=== PATIENT | male | born 1960 | race American Indian/Alaskan Native ===

== ENCOUNTER 2022-05-08 23:04 | Inpatient (IN) | payer SELFPAY ==
[2022-05-08] MEDS ORDERED: SODIUM CHLORIDE 0.9% 1000 ML 1,000 ML IV ONE (23:56)
[2022-05-08] MEDS ORDERED: ONDANSETRON 4 MG/2 ML INJ IV ONE (23:56)
[2022-05-09] LABS: Mean Corpuscular HGB Conc 31 % (32-34); Mean Corpuscular Volume 93 fl (84-94); Platelet Count 351 K/mm3 (140-440); Red Blood Count 4.59 M/mm3 (3.65-5.03); Red Cell Distribution Width 16.1 % (13.2-15.2)
[2022-05-09 00:01] LABS: Hematocrit 42.4 % (35.5-45.6)
[2022-05-09 00:15] LABS: Albumin 4.3 g/dL (3.9-5); Calcium 9.3 mg/dL (8.4-10.2)
[2022-05-09 00:39] LABS: Color,Urine Yellow (Yellow)
[2022-05-09 00:43] LABS: WBC,Urine < 1.0 /HPF (0.0-6.0)
[2022-05-09] MEDS ORDERED: INSULIN REGULAR, HUMAN 100 UNITS/1 ML IV ONE (00:51)
[2022-05-09] MEDS ORDERED: DEXTROSE 50% IN WATER (25GM) 50 ML SYRINGE IV PRN ×2 (00:51→18:56)
[2022-05-09] MEDS ORDERED: SODIUM CHLORIDE 0.9% 1000 ML 1,000 ML IV ONE ×2 (00:59)
[2022-05-09] MEDS ORDERED: CALCIUM GLUCONATE 1,000 MG in SODIUM CHLORIDE 0.9% 100 ML IV ONE (01:00)
[2022-05-09] MEDS ORDERED: D5W/0.45% NACL/KCL 20 MEQ 20 MEQ/1,000 ML BAG IV SCH (01:00)
--- NOTE | 2022-05-09 01:18 | Emergency Department Report ---
ED N/V/D HPI - General Chief complaint: Nausea/Vomiting/Diarrhea Stated complaint: N/V, HYPERGLYCEMIA Time Seen by Provider: 05/08/22 23:53 Source: patient Mode of arrival: Stretcher Limitations: Physical Limitation - History of Present Illness Initial comments: Patient is a 62-year-old male with history of diabetes presenting to ED with complaint of nausea vomiting for the past 3 days. Accu-Chek critical high. - Related Data Allergies Allergy/AdvReac Type Severity Reaction Status Date / Time No Known Allergies Allergy Unverified 05/08/22 23:26 ED Review of Systems ROS: Stated complaint: N/V, HYPERGLYCEMIA Other details as noted in HPI Constitutional: denies: chills, fever Respiratory: denies: cough, shortness of breath, wheezing Cardiovascular: denies: chest pain, palpitations Gastrointestinal: nausea, vomiting. denies: abdominal pain Musculoskeletal: denies: back pain, joint swelling, arthralgia Skin: denies: rash, lesions Neurological: denies: headache, weakness, paresthesias Psychiatric: as per HPI Hematological/Lymphatic: denies: easy bleeding, easy bruising ED Past Medical Hx - Past Medical History Previous Medical History?: Yes Hx Hypertension: Yes Hx CVA: Yes Hx Diabetes: Yes Hx Arthritis: Yes - Surgical History Past Surgical History?: Yes Additional Surgical History: Left BKA - Social History Smoking Status: Never Smoker Substance Use Type: None ED Physical Exam - General Limitations: Physical Limitation General appearance: alert, in no apparent distress - Head Head exam: Present: atraumatic, normocephalic - Respiratory Respiratory exam: Present: normal lung sounds bilaterally. Absent: respiratory distress - Cardiovascular Cardiovascular Exam: Present: normal rhythm, tachycardia, normal heart sounds - GI/Abdominal GI/Abdominal exam: Present: soft. Absent: distended, tenderness - Rectal Rectal exam: Present: deferred - Extremities Exam Extremities exam: Present: other (Left BKA) - Neurological Exam Neurological exam: Present: alert, oriented X3 - Psychiatric Psychiatric exam: Present: normal affect, normal mood - Skin Skin exam: Present: warm, dry, intact, normal color ED Course Vital Signs 05/08/22 05/08/22 05/09/22 23:05 23:50 00:01 Temperature 97.6 F Pulse Rate 110 H 110 H 117 H Respiratory 20 39 H 43 H Rate Blood Pressure 100/56 O2 Sat by Pulse 99 99 Oximetry 05/09/22 05/09/22 05/09/22 00:03 00:15 00:31 Temperature Pulse Rate 116 H 113 H 101 H Respiratory 40 H 37 H 38 H Rate Blood Pressure O2 Sat by Pulse 94 66 L Oximetry 05/09/22 05/09/22 00:45 01:01 Temperature Pulse Rate 80 88 Respiratory 43 H 38 H Rate Blood Pressure O2 Sat by Pulse 95 96 Oximetry ED Medical Decision Making - Lab Data Result diagrams: 05/08/22 23:38 05/09/22 01:12 - Medical Decision Making Lab findings consistent with DKA. Serum potassium 6.9 with peaked T waves noted on EKG. Patient given IV calcium gluconate and started on insulin infusion. Critical Care Time: Yes Critical care time in (mins) excluding proc time.: 50 Critical care attestation.: If time is entered above; I have spent that time in minutes in the direct care of this critically ill patient, excluding procedure time. ED Disposition Clinical Impression: DKA (diabetic ketoacidosis) Disposition: ADMITTED INPATIENT Is pt being admited?: Yes Does the pt Need Aspirin: No Condition: Stable
[2022-05-09] MEDS: INSULIN REGULAR, HUMAN 100 UNITS in SODIUM CHLORIDE 0.9% 99 ML IV SCH ×2 (01:34→16:36)
--- NOTE | 2022-05-09 01:51 | XRay Report ---
CHEST 1 VIEW 05/09/2022 12:42 AM INDICATION / CLINICAL INFORMATION: DKA. COMPARISON: None available. FINDINGS: SUPPORT DEVICES: None. HEART / MEDIASTINUM: No significant abnormality. LUNGS / PLEURA: There are generalized bilateral interstitial opacities without other significant pulm onary abnormalities. No significant pleural effusion. No pneumothorax. ADDITIONAL FINDINGS: No significant additional findings. IMPRESSION: Probable bilateral edema/atelectasis without other acute findings. Signer Name: Isaías Garcia MD Signed: 05/09/2022 1:47 AM Workstation Name: [id number]
[2022-05-09] MEDS ORDERED: CALC GLUCONATE 1GM/NS 100 ML 1 GM/100 ML BAG IV ONE (02:00)
[2022-05-09 02:36] LABS: Calcium 8.9 mg/dL (8.4-10.2)
[2022-05-09 02:42] LABS: ABG Base Excess -22.3 mmol/L (-2.0-3.0); ABG HCO3 4.5 mmol/L (20.0-26.0); ABG Methemoglobin 0.7 % (0.0-1.5); ABG Oxygen Saturation 97.5 % (95.0-99.0); ABG PCO2 13.7 mm Hg; ABG PO2 116.6 mm Hg (80.0-90.0)
[2022-05-09 02:45] LABS: ABG PH 7.138 pH Units (7.350-7.450)
[2022-05-09] MEDS ORDERED: MORPHINE 4 MG/1 ML INJ IV PRN (02:57)
[2022-05-09] MEDS ORDERED: MAGNESIUM HYDROXIDE (MOM) ORAL LIQD UDC PO PRN (02:57)
[2022-05-09] MEDS ORDERED: ACETAMINOPHEN 325 MG TAB PO PRN (02:57)
--- NOTE | 2022-05-09 03:09 | History and Physical Report ---
History of Present Illness Date of examination: 05/09/22 Date of admission: 05/09/2022 Chief complaint: Nausea and vomiting History of present illness: 62-year-old male with known history of diabetes mellitus presenting to the emergency room today complaining of nausea and vomiting with associated abdominal pain which has been ongoing for the past 3 days. He denies any fever or chills, no chest pain or shortness of breath, no headache or dizziness and no diaphoresis. Patient indicates that his machine was reading high on the Accu-Chek machine. Work-up in the emergency room today, lab reveals WBC of 12.4 sodium of 130 potassium of 6.9 CO2 of 6 BUN of 47 creatinine of 1.9 blood glucose 104. Chest x-ray shows probable bilateral edema/atelectasis without other acute findings. Patient is admitted in DKA and started on insulin drip and IV fluid. Past History Past Medical History: arthritis, diabetes, hypertension Past Surgical History: Other (Left BKA) Social history: no significant social history Family history: no significant family history Medications and Allergies Allergies Allergy/AdvReac Type Severity Reaction Status Date / Time No Known Allergies Allergy Unverified 05/08/22 23:26 Active Meds: Active Medications Dextrose (Dextrose 50% In Water (25gm) 50 Ml Syringe) 0 ml IV Q30MIN PRN; Protocol PRN Reason: Hypoglycemia Heparin Sodium (Porcine) (Heparin 5,000 Unit/1 Ml Vial) 5,000 unit SUB-Q Q8HR ELIZA Insulin Human Regular 100 (units/ Sodium Chloride) 100 mls @ 6 mls/hr IV TITR ELIZA; Protocol Last Admin: 05/09/22 01:34 Dose: 6 units/hr, 6 mls/hr Potassium Chloride/Dextrose/Sod Cl (D5w/0.45% Nacl/Kcl 20 Meq) 20 meq in 1,000 mls @ 125 mls/hr IV DIRECT ELIZA Sodium Bicarbonate (Sodium Bicarb 8.4% 50 Meq/50 Ml Syringe) 50 meq IV ONCE ONE Stop: 05/09/22 03:41 Review of Systems Constitutional: no fever, no chills Ears, nose, mouth and throat: no nasal congestion, no sore throat Cardiovascular: no chest pain, no palpitations Respiratory: no cough, no shortness of breath Gastrointestinal: nausea, vomiting, no abdominal pain, no diarrhea Genitourinary Male: no dysuria, no hematuria, no flank pain Musculoskeletal: no neck pain, no low back pain Integumentary: no rash, no pruritis Neurological: no headaches, no confusion Psychiatric: no anxiety, no depression Endocrine: no polyphagia, no polydipsia, no polyuria, no nocturia Exam - Constitutional Vitals: Temp Pulse Resp BP Pulse Ox 97.6 F 88 38 H 100/56 96 05/08/22 23:05 05/09/22 01:01 05/09/22 01:01 05/08/22 23:05 05/09/22 01:01 General appearance: Present: no acute distress, well-nourished - EENT Eyes: Present: PERRL, EOM intact. Absent: scleral icterus ENT: hearing intact, clear oral mucosa, dentition normal - Neck Neck: Present: supple, normal ROM - Respiratory Respiratory effort: normal Respiratory: bilateral: CTA - Cardiovascular Rhythm: regular Heart Sounds: Present: S1 & S2. Absent: gallop, systolic murmur, diastolic murm ur, rub, click - Extremities Extremities: no ischemia, pulses intact, pulses symmetrical, No edema, normal temperature, Full ROM Peripheral Pulses: within normal limits - Abdominal General gastrointestinal: Present: soft, non-tender, non-distended, normal bowel sounds. Absent: mass - Integumentary Integumentary: Present: clear, warm, dry, normal turgor. Absent: rash - Musculoskeletal Musculoskeletal: strength equal bilaterally - Psychiatric Psychiatric: appropriate mood/affect, intact judgment & insight, memory intact, cooperative - Neurologic Neurologic: CNII-XII intact, no focal deficits, moves all extremities Results - Labs CBC & Chem 7: 05/08/22 23:38 05/09/22 04:40 Labs: Abnormal lab results 05/08/22 05/08/22 05/09/22 Range/Units 23:38 23:38 01:12 WBC 12.4 H (4.5-11.0) K/mm3 MCHC 31 L (32-34) % RDW 16.1 H (13.2-15.2) % ABG pH (7.350-7.450) pH Units ABG pO2 (80.0-90.0) mm Hg ABG HCO3 (20.0-26.0) mmol/L ABG Base Excess (-2.0-3.0) mmol/L ABG Hemoglobin (14.0-18.0) gm/dl Sodium 130 L (137-145) mmol/L Potassium 6.9 H* (3.6-5.0) mmol/L Chloride 85.3 L (98-107) mmol/L Carbon Dioxide 6 L* (22-30) mmol/L BUN 47 H (9-20) mg/dL Creatinine 1.9 H (0.8-1.3) mg/dL Glucose 804 H* (75-100) mg/dL Phosphorus 9.60 H (2.5-4.5) mg/dL Magnesium 2.90 H (1.7-2.3) mg/dL Alkaline Phosphatase 142 H (35-129) units/L 05/09/22 05/09/22 Range/Units 01:12 02:20 WBC (4.5-11.0) K/mm3 MCHC (32-34) % RDW (13.2-15.2) % ABG pH 7.138 L* (7.350-7.450) pH Units ABG pO2 116.6 H (80.0-90.0) mm Hg ABG HCO3 4.5 L (20.0-26.0) mmol/L ABG Base Excess -22.3 L (-2.0-3.0) mmol/L ABG Hemoglobin 12.0 L (14.0-18.0) gm/dl Sodium 131 L (137-145) mmol/L Potassium 6.6 H* (3.6-5.0) mmol/L Chloride 88.7 L (98-107) mmol/L Carbon Dioxide 5 L* (22-30) mmol/L BUN 48 H (9-20) mg/dL Creatinine 1.8 H (0.8-1.3) mg/dL Glucose 811 H* (75-100) mg/dL Phosphorus (2.5-4.5) mg/dL Magnesium (1.7-2.3) mg/dL Alkaline Phosphatase (35-129) units/L Assessment and Plan Assessment: 1. DKA 2. Hypertension 3. History of CVA Plan: 1. Patient admitted into the intensive care unit and started on insulin drip and IV fluid 2. We will monitor Accu-Cheks closely. DVT prophylaxis: Subcutaneous heparin CODE STATUS full code
[2022-05-09] MEDS ORDERED: SODIUM BICARB 8.4% 50 MEQ/50 ML SYRINGE IV ONE ×2 (03:40→05:43)
[2022-05-09 04:41] LABS: Basophils % (Manual) 0 % (0.0-1.8); Eosinophils % (Manual) 0 % (0.0-4.3); RBC Morphology Normal; Total Cells Counted 100
[2022-05-09 05:26] LABS: Calcium 8.9 mg/dL (8.4-10.2)
[2022-05-09] MEDS: SODIUM CHLORIDE 0.9% 1000 ML 1,000 ML IV SCH (06:24)
[2022-05-09] MEDS: HEPARIN 5,000 UNIT/1 ML VIAL SUB-Q SCH ×3 (06:24→21:13)
[2022-05-09 07:30] LABS: Calcium 8.7 mg/dL (8.4-10.2)
[2022-05-09] MEDS ORDERED: SODIUM CHLORIDE 0.9% 1000 ML 2,000 ML IV ONE (09:00)
[2022-05-09] MEDS ORDERED: FAMOTIDINE 20 MG/2 ML INJ IV SCH (10:00)
[2022-05-09] MEDS: D5W/0.45% NACL 1,000 ML IV SCH ×2 (11:10→20:00)
--- NOTE | 2022-05-09 11:26 | Consultation ---
History of Present Illness Consult date: 05/09/22 Requesting physician: ALLI BALDERRAMA Reason for consult: other (DKA) History of present illness: PULMONARY/CCM CONSULT NOTE (Full dictation # [id number]) Please see dictated notes for full details Past History Past Medical History: arthritis, diabetes, hypertension Past Surgical History: Other (Left BKA) Social history: no significant social history Family history: no significant family history Medications and Allergies Allergies Allergy/AdvReac Type Severity Reaction Status Date / Time No Known Allergies Allergy Unverified 05/08/22 23:26 Home Medications Medication Instructions Recorded Confirmed Last Taken Type Amlodipine-Benazepril 10-40 mg 10 - 40 mg PO DAILY 05/09/22 05/09/22 05/07/22 History AtorvaSTATin 80 mg PO DAILY 05/09/22 05/09/22 05/07/22 History Gabapentin 100 mg PO DAILY 05/09/22 05/09/22 05/07/22 History HumaLOG 15 mg SQ AC 05/09/22 05/09/22 05/07/22 History Levemir VIAL 22 units SQ HS 05/09/22 05/09/22 05/07/22 History Omeprazole 40 mg PO DAILY 05/09/22 05/09/22 05/08/22 History Active Meds: Active Medications Acetaminophen (Acetaminophen 325 Mg Tab) 650 mg PO Q6H PRN PRN Reason: Pain MILD(1-3)/Fever >100.5/HOLT Dextrose (Dextrose 50% In Water (25gm) 50 Ml Syringe) 0 ml IV Q30MIN PRN; Protocol PRN Reason: Hypoglycemia Famotidine (Famotidine 20 Mg/2 Ml Inj) 20 mg IV QDAY ELIZA Stop: 05/10/22 09:59 Last Admin: 05/09/22 09:04 Dose: 20 mg Famotidine (Famotidine 20 Mg Tab) 20 mg PO QDAY ELIZA Heparin Sodium (Porcine) (Heparin 5,000 Unit/1 Ml Vial) 5,000 unit SUB-Q Q8HR ELIZA Last Admin: 05/09/22 06:24 Dose: 5,000 unit Insulin Human Regular 100 (units/ Sodium Chloride) 100 mls @ 6 mls/hr IV TITR ELIZA; Protocol Last Titration: 05/09/22 11:08 Dose: 5 units/hr, 5 mls/hr Sodium Chloride (Nacl 0.9% 1000 Ml) 1,000 mls @ 150 mls/hr IV DIRECT ELIZA Last Admin: 05/09/22 06:24 Dose: 150 mls/hr Dextrose/Sodium Chloride (D5/0.45ns) 1,000 mls @ 125 mls/hr IV DIRECT [facility] Last Admin: 05/09/22 11:10 Dose: 125 mls/hr Magnesium Hydroxide (Magnesium Hydroxide (Mom) Oral Liqd Udc) 30 ml PO Q4H PRN PRN Reason: Constipation Morphine Sulfate (Morphine 2 Mg/1 Ml Inj) 2 mg IV Q4H PRN PRN Reason: Pain, Moderate (4-6) Ondansetron HCl (Ondansetron 4 Mg/2 Ml Inj) 4 mg IV Q8H PRN PRN Reason: Nausea And Vomiting Sodium Chloride (Sodium Chloride 0.9% 10 Ml Flush Syringe) 10 ml IV BID [facility] Last Admin: 05/09/22 09:04 Dose: 10 ml Sodium Chloride (Sodium Chloride 0.9% 10 Ml Flush Syringe) 10 ml IV PRN PRN PRN Reason: LINE FLUSH Physical Examination Vital signs: Vital Signs Temp Pulse Resp BP Pulse Ox 97.6 F 110 H 20 100/56 99 05/08/22 23:05 05/08/22 23:05 05/08/22 23:05 05/08/22 23:05 05/08/22 23:05 Results - Laboratory Findings CBC and BMP: 05/08/22 23:38 05/09/22 09:27 ABG ABG pH 7.138 pH Units (7.350-7.450) L* 05/09/22 02:20 ABG pCO2 13.7 mm Hg 05/09/22 02:20 ABG pO2 116.6 mm Hg (80.0-90.0) H 05/09/22 02:20 ABG O2 Saturation 97.5 % (95.0-99.0) 05/09/22 02:20 Abnormal lab findings: Abnormal Labs 05/08/22 05/08/22 05/09/22 23:38 23:38 01:12 WBC 12.4 H MCHC 31 L RDW 16.1 H Seg Neuts % (Manual) 86.0 H Lymphocytes % (Manual) 9.0 L Seg Neutrophils # Man 10.7 H Lymphocytes # (Manual) 1.1 L ABG pH ABG pO2 ABG HCO3 ABG Base Excess ABG Hemoglobin Sodium 130 L Potassium 6.9 H* Chloride 85.3 L Carbon Dioxide 6 L* BUN 47 H Creatinine 1.9 H Glucose 804 H* POC Glucose Phosphorus 9.60 H Magnesium 2.90 H Alkaline Phosphatase 142 H 05/09/22 05/09/22 05/09/22 01:12 02:20 04:22 WBC MCHC RDW Seg Neuts % (Manual) Lymphocytes % (Manual) Seg Neutrophils # Man Lymphocytes # (Manual) ABG pH 7.138 L* ABG pO2 116.6 H ABG HCO3 4.5 L ABG Base Excess -22.3 L ABG Hemoglobin 12.0 L Sodium 131 L Potassium 6.6 H* Chloride 88.7 L Carbon Dioxide 5 L* BUN 48 H Creatinine 1.8 H Glucose 811 H* POC Glucose 556 H Phosphorus Magnesium Alkaline Phosphatase 05/09/22 05/09/22 05/09/22 04:40 05:28 06:30 WBC MCHC RDW Seg Neuts % (Manual) Lymphocytes % (Manual) Seg Neutrophils # Man Lymphocytes # (Manual) ABG pH ABG pO2 ABG HCO3 ABG Base Excess ABG Hemoglobin Sodium Potassium 5.8 H Chloride 97.2 L Carbon Dioxide 6 L* BUN 44 H Creatinine 1.8 H Glucose 629 H* POC Glucose 591 H 487 H Phosphorus 8.00 H Magnesium 2.80 H Alkaline Phosphatase 05/09/22 07:00 WBC MCHC RDW Seg Neuts % (Manual) Lymphocytes % (Manual) Seg Neutrophils # Man Lymphocytes # (Manual) ABG pH ABG pO2 ABG HCO3 ABG Base Excess ABG Hemoglobin Sodium Potassium 6.3 H* Chloride Carbon Dioxide 10 L BUN 45 H Creatinine 1.8 H Glucose 534 H* POC Glucose Phosphorus Magnesium Alkaline Phosphatase
[2022-05-09 12:15] LABS: Calcium 8.9 mg/dL (8.4-10.2)
--- NOTE | 2022-05-09 13:29 | Progress Note ---
<PETRA PEREZ - Last Filed: 05/09/22 16:02> Assessment and Plan Assessment and plan: This is a 62-year-old male with known past medical history of HTN, arthritis, and IDDM complicated by diabetic neuropathy s/p LBKA, admitted for DKA Hospital Course to Date: 05/09: Remains in DKA with hyperkalemia and metabolic acidosis this am. Additional IVF administered, continue insulin gtt and IVF resuscitation per DKA protocol. Renal function is unchanged, patient denied any previous renal issues. Probably vasomotor nephropathy secondary to DKA. Serial labs ordered. Continue to monitor BG, anion gap, and electrolytes. Assessment and Plan #Diabetic Ketoacidosis(DKA) #Insulin Dependent Diabetes Mellitus(IDDM) #Anion Gap Metabolic Acidosis - On DKA protocol - BG and anion gap still elevated this am - Additional IVF bolus ordered - Continue insulin gtt and IVF resuscitation per DKA protocol - Hgb A1c pending - Monitor and replace electrolytes as needed - Monitor anion gap, serial Labs ordered #Acute Kidney Injury([facility]) probably Vasomotor Nephropathy #Hyperkalemia #Metabolic Acidosis - secondary to Above - Baseline renal function is unknown, patient reported no prior history of renal disease - Presented with K of 6.9, Scr. 1.9 - Mild improvement in renal function post IVF hydration - Urine lytes pending - Continue insulin gtt and IVF resuscitation per DKA protocol - Serial Labs Q4hrs - Strict intake and output - Avoid nephrotoxic medications; Renally dose medications - Monitor and replace electrolytes as needed #SIRS - With leukocytosis, low grade temp 100.3, and low BP - UA is unremarkable - Chest x-ray shows probable bilateral edema/atelectasis without other acute findings - Patient is stable on RA, SPO2 above 95% - Probably reactive 2/2 DKA - COVID PCR pending - Will get blood cultures for now, check CRP and procal - Hold off on IV Abx for now #Hypertension - BP soft this am, SR on the monitor - Hold antihypertensive therapy today, resume home meds tomorrow - Continue blood pressure monitor per protocol - Maintain SBP less than 160 #Diabetic Neuropathy s/p LBKA - Chronic, continue support measures - Home meds resumed #GI/DVT Prophylaxis - PPI- Pepcid - Heparin SubQ - SCDs to bilateral lower extremities while in bed #Advance Care Planning - Disease education data, care plan, diagnoses, and prognosis were discussed with patient at the bedside. Patient is a FULL code. Patient acknowledged understanding and agreed with current care plan. The high probability of a clinically significant, sudden or life threatening deterioration of the [multiple] system(s) required my full and direct attention, intervention and personal management. The aggregate critical care time was [60] minutes. This time is in addition to time spent performing reported procedures but includes the following: [x] Data Review and interpretation [x] Patient assessment and monitoring of vital signs [x] Documentation [x] Medication orders and management Disposition Plan: ICU Total Time Spent with Patient (Minutes): 60 History Interval history: Patient seen and examined at the bedside. Fully AAO, on RA, denied any pain nor any discomfort at this time. On the DKA protocol, N/V resolved, VSS. SEGUNDO overnight. Hospitalist Physical - Constitutional Vitals: Temp Pulse Resp BP Pulse Ox 98.1 F 92 H 24 86/42 97 05/09/22 08:00 05/09/22 13:00 05/09/22 13:00 05/09/22 13:00 05/09/22 13:00 General appearance: Present: no acute distress, well-nourished, obese - EENT Eyes: Present: PERRL, EOM intact ENT: hearing intact - Neck Neck: Present: normal ROM - Respiratory Respiratory effort: normal Respiratory: bilateral: diminished - Cardiovascular Rhythm: regular Heart Sounds: Present: S1 & S2 - Extremities Extremities: no ischemia, pulses intact, pulses symmetrical, abnormal (Left BKA) Peripheral Pulses: within normal limits - Abdominal General gastrointestinal: soft, non-distended, normal bowel sounds - Integumentary Integumentary: Present: warm, dry - Psychiatric Psychiatric: appropriate mood/affect, cooperative - Neurologic Neurologic: CNII-XII intact, moves all extremities - Allied Health Allied health notes reviewed: nursing Results - Labs CBC & Chem 7: 05/08/22 23:38 05/09/22 14:32 Labs: Laboratory Last Values WBC 12.4 K/mm3 (4.5-11.0) H 05/08/22 23:38 RBC 4.59 M/mm3 (3.65-5.03) 05/08/22 23:38 Hgb 13.0 gm/dl (11.8-15.2) 05/08/22 23:38 Hct 42.4 % (35.5-45.6) 05/08/22 23:38 MCV 93 fl (84-94) 05/08/22 23:38 MCH 28 pg (28-32) 05/08/22 23:38 MCHC 31 % (32-34) L 05/08/22 23:38 RDW 16.1 % (13.2-15.2) H 05/08/22 23:38 Plt Count 351 K/mm3 (140-440) 05/08/22 23:38 Add Manual Diff Complete 05/08/22 23:38 Total Counted 100 05/08/22 23:38 Seg Neutrophils % Patient Accounts Specialist 05/08/22 23:38 Seg Neuts % (Manual) 86.0 % (40.0-70.0) H 05/08/22 23:38 Band Neutrophils % 0 % 05/08/22 23:38 Lymphocytes % (Manual) 9.0 % (13.4-35.0) L 05/08/22 23:38 Reactive Lymphs % (Man) 0 % 05/08/22 23:38 Monocytes % (Manual) 5.0 % (0.0-7.3) 05/08/22 23:38 Eosinophils % (Manual) 0 % (0.0-4.3) 05/08/22 23:38 Basophils % (Manual) 0 % (0.0-1.8) 05/08/22 23:38 Metamyelocytes % 0 % 05/08/22 23:38 Myelocytes % 0 % 05/08/22 23:38 Promyelocytes % 0 % 05/08/22 23:38 Blast Cells % 0 % 05/08/22 23:38 Nucleated RBC % Not Reportable 05/08/22 23:38 Seg Neutrophils # Man 10.7 K/mm3 (1.8-7.7) H 05/08/22 23:38 Band Neutrophils # 0.0 K/mm3 05/08/22 23:38 Lymphocytes # (Manual) 1.1 K/mm3 (1.2-5.4) L 05/08/22 23:38 Abs React Lymphs (Man) 0.0 K/mm3 05/08/22 23:38 Monocytes # (Manual) 0.6 K/mm3 (0.0-0.8) 05/08/22 23:38 Eosinophils # (Manual) 0.0 K/mm3 (0.0-0.4) 05/08/22 23:38 Basophils # (Manual) 0.0 K/mm3 (0.0-0.1) 05/08/22 23:38 Metamyelocytes # 0.0 K/mm3 05/08/22 23:38 Myelocytes # 0.0 K/mm3 05/08/22 23:38 Promyelocytes # 0.0 K/mm3 05/08/22 23:38 Blast Cells # 0.0 K/mm3 05/08/22 23:38 WBC Morphology Not Reportable 05/08/22 23:38 Hypersegmented Neuts Not Reportable 05/08/22 23:38 Hyposegmented Neuts Not Reportable 05/08/22 23:38 Hypogranular Neuts Not Reportable 05/08/22 23:38 Smudge Cells Not Reportable 05/08/22 23:38 Toxic Granulation Not Reportable 05/08/22 23:38 Toxic Vacuolation Not Reportable 05/08/22 23:38 Dohle Bodies Not Reportable 05/08/22 23:38 Pelger-Huet Anomaly Not Reportable 05/08/22 23:38 Buster Rods Not Reportable 05/08/22 23:38 Platelet Estimate Not Reportable 05/08/22 23:38 Clumped Platelets Not Reportable 05/08/22 23:38 Plt Clumps, EDTA Not Reportable 05/08/22 23:38 Large Platelets Not Reportable 05/08/22 23:38 Giant Platelets Not Reportable 05/08/22 23:38 Platelet Satelliting Not Reportable 05/08/22 23:38 Plt Morphology Comment Not Reportable 05/08/22 23:38 RBC Morphology Normal 05/08/22 23:38 Dimorphic RBCs Not Reportable 05/08/22 23:38 Polychromasia Not Reportable 05/08/22 23:38 Hypochromasia Not Reportable 05/08/22 23:38 Poikilocytosis Not Reportable 05/08/22 23:38 Anisocytosis Not Reportable 05/08/22 23:38 Microcytosis Not Reportable 05/08/22 23:38 Macrocytosis Not Reportable 05/08/22 23:38 Spherocytes Not Reportable 05/08/22 23:38 Pappenheimer Bodies Not Reportable 05/08/22 23:38 Sickle Cells Not Reportable 05/08/22 23:38 Target Cells Not Reportable 05/08/22 23:38 Tear Drop Cells Not Reportable 05/08/22 23:38 Ovalocytes Not Reportable 05/08/22 23:38 Helmet Cells Not Reportable 05/08/22 23:38 [place] Bodies Not Reportable 05/08/22 23:38 [place] Rings Not Reportable 05/08/22 23:38 [place] Cells Not Reportable 05/08/22 23:38 Bite Cells Not Reportable 05/08/22 23:38 Crenated Cell Not Reportable 05/08/22 23:38 Elliptocytes Not Reportable 05/08/22 23:38 Acanthocytes (Spur) Not Reportable 05/08/22 23:38 Rouleaux Not Reportable 05/08/22 23:38 Hemoglobin C Crystals Not Reportable 05/08/22 23:38 Schistocytes Not Reportable 05/08/22 23:38 Malaria parasites Not Reportable 05/08/22 23:38 Markus Bodies Not Reportable 05/08/22 23:38 Hem Pathologist Commnt No 05/08/22 23:38 ABG pH 7.138 pH Units (7.350-7.450) L* 05/09/22 02:20 ABG pCO2 13.7 mm Hg 05/09/22 02:20 ABG pO2 116.6 mm Hg (80.0-90.0) H 05/09/22 02:20 ABG HCO3 4.5 mmol/L (20.0-26.0) L 05/09/22 02:20 ABG O2 Saturation 97.5 % (95.0-99.0) 05/09/22 02:20 ABG O2 Content 16.4 (0.0-44) 05/09/22 02:20 ABG Base Excess -22.3 mmol/L (-2.0-3.0) L 05/09/22 02:20 ABG Hemoglobin 12.0 gm/dl (14.0-18.0) L 05/09/22 02:20 ABG Carboxyhemoglobin 1.2 % (0.0-5.0) 05/09/22 02:20 ABG Methemoglobin 0.7 % (0.0-1.5) 05/09/22 02:20 Oxyhemoglobin 95.6 % (95.0-99.0) 05/09/22 02:20 FiO2 21 % 05/09/22 02:20 Sodium 143 mmol/L (137-145) 05/09/22 09:27 Potassium 5.2 mmol/L (3.6-5.0) H 05/09/22 09:27 Chloride 104.3 mmol/L (98-107) 05/09/22 09:27 Carbon Dioxide 14 mmol/L (22-30) L 05/09/22 09:27 Anion Gap 30 mmol/L 05/09/22 09:27 BUN 41 mg/dL (9-20) H 05/09/22 09:27 Creatinine 1.8 mg/dL (0.8-1.3) H 05/09/22 09:27 Estimated GFR 46 ml/min 05/09/22 09:27 BUN/Creatinine Ratio 23 % 05/09/22 09:27 Glucose 344 mg/dL (75-100) H 05/09/22 09:27 POC Glucose 487 mg/dL (70-105) H 05/09/22 06:30 Ketones Quantitative Small (Negative) 05/08/22 00:02 Calcium 8.9 mg/dL (8.4-10.2) 05/09/22 09:27 Phosphorus 2.80 mg/dL (2.5-4.5) D 05/09/22 09:27 Magnesium 2.60 mg/dL (1.7-2.3) H 05/09/22 09:27 Total Bilirubin 0.40 mg/dL (0.1-1.2) 05/08/22 23:38 AST 25 units/L (5-40) 05/08/22 23:38 ALT 12 units/L (7-56) 05/08/22 23:38 Alkaline Phosphatase 142 units/L (35-129) H 05/08/22 23:38 Total Protein 8.0 g/dL (6.3-8.2) 05/08/22 23:38 Albumin 4.3 g/dL (3.9-5) 05/08/22 23:38 Albumin/Globulin Ratio 1.2 % 05/08/22 23:38 Urine Color Yellow (Yellow) 05/09/22 00:12 Urine Turbidity Clear (Clear) 05/09/22 00:12 Specific [place] (Man) 1.020 (1.003-1.030) 05/09/22 00:12 Ur Protein (Man) 3+ mg/dL (Negative) 05/09/22 00:12 Ur Ketones (Man) 3+ (Negative) 05/09/22 00:12 Ur Nitrite (Man) Negative (Negative) 05/09/22 00:12 Leukocyte Esterase (Man) Negative (Negative) 05/09/22 00:12 Urine WBC (Auto) < 1.0 /HPF (0.0-6.0) 05/09/22 00:12 Urine RBC (Auto) 1.0 /HPF (0.0-6.0) 05/09/22 00:12 U Epithel Cells (Auto) < 1.0 /HPF (0-13.0) 05/09/22 00:12 Urine RBC (Manual) Negative (Negative) 05/09/22 00:12 Meek/IV: Voiding Method Urinal Active Medications - Current Medications Current Medications: Generic Name Dose Route Start Last Admin Trade Name Freq PRN Reason Stop Dose Admin Acetaminophen 650 mg 05/09/22 02:57 Acetaminophen 325 Mg Tab PO Q6H PRN Pain MILD(1-3)/Fever >100.5/HOLT Dextrose 0 ml 05/09/22 00:51 Dextrose 50% In Water (25gm) 50 Ml Syringe IV Q30MIN PRN Hypoglycemia Protocol Famotidine 20 mg 05/09/22 10:00 05/09/22 09:04 Famotidine 20 Mg/2 Ml Inj IV 05/10/22 09:59 20 mg QDAY ELIZA Administration Famotidine 20 mg 05/10/22 10:00 Famotidine 20 Mg Tab PO QDAY ELIZA Heparin Sodium (Porcine) 5,000 unit 05/09/22 06:00 05/09/22 06:24 Heparin 5,000 Unit/1 Ml Vial SUB-Q 5,000 unit Q8HR ELIZA Administration Insulin Human Regular 100 100 mls @ 6 mls/hr 05/09/22 01:00 05/09/22 12:20 units/ Sodium Chloride IV 3 units/hr TITR ELIZA 3 mls/hr Titration Protocol 6 UNITS/HR Sodium Chloride 1,000 mls @ 150 mls/hr 05/09/22 03:00 05/09/22 06:24 Nacl 0.9% 1000 Ml IV 150 mls/hr DIRECT ELIZA Administration Dextrose/Sodium Chloride 1,000 mls @ 125 mls/hr 05/09/22 09:00 05/09/22 11:10 D5/0.45ns IV 125 mls/hr DIRECT ELIZA Administration Lactated Ringer's 1,000 mls @ 999 mls/hr 05/09/22 13:25 Lactated Ringers IV 05/09/22 14:25 BOLUS ONE Magnesium Hydroxide 30 ml 05/09/22 02:57 Magnesium Hydroxide (Mom) Oral Liqd Udc PO Q4H PRN Constipation Morphine Sulfate 2 mg 05/09/22 02:57 Morphine 2 Mg/1 Ml Inj IV Q4H PRN Pain, Moderate (4-6) Ondansetron HCl 4 mg 05/09/22 02:57 Ondansetron 4 Mg/2 Ml Inj IV Q8H PRN Nausea And Vomiting Sodium Chloride 10 ml 05/09/22 10:00 05/09/22 09:04 Sodium Chloride 0.9% 10 Ml Flush Syringe IV 10 ml BID ELIZA Administration Sodium Chloride 10 ml 05/09/22 02:57 Sodium Chloride 0.9% 10 Ml Flush Syringe IV PRN PRN LINE FLUSH Nutrition/Malnutrition Assess - Dietary Evaluation Nutrition/Malnutrition Findings: Nutrition Notes Start: 05/09/22 08:2 9 Freq: Status: Active Protocol: Document 05/09/22 08:29 CHANI (Rec: 05/09/22 08:45 CHANI [id number]) Nutrition Notes Need for Assessment generated from: MD Order,Education Initial or Follow up Brief Note Current Diagnosis Acute Kidney Injury,Diabetes, Stroke Other Pertinent Diagnosis Hyperglycemia, DKA, Hyperkalemia. Current Diet NPO (since 05/09 03:01). 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 Pt currently on NPO. Pt is on Room Air, O2 saturation @ 100%, according to Physical Assessment History notes. Pt has missing teeth, according to Physical Assessment History notes. Pt presents L-BKA, according to Physical Assessment History notes. Pt complains of N/V/Abdominal Pain, according to History & Physical notes. Pt still in critical condition , not a candidate for Nutrition Education at the time, will assess feasibility on F/U. Percent of energy/protein needs met: Pt currently on NPO. Nutrition Intervention Follow-Up By: 05/11/22 Additional Comments Nutrition education will be provided at F/U, if feasible. When pertinent, start monitoring food tolerance, %PO intake of meals, and BM. <ROSA KOHLER - Last Filed: 05/10/22 07:38> Assessment and Plan Assessment and plan: I saw and evaluated the patient. I agree with the findings and the plan of care as documented in the Nurse Practitioner's~note, with the following corrections and additions. Hospitalist Physical - Constitutional Vitals: Temp Pulse Resp BP Pulse Ox 98.9 F 95 H 23 110/54 99 05/10/22 07:16 05/10/22 06:00 05/10/22 06:00 05/10/22 06:00 05/10/22 06:00 Results - Labs CBC & Chem 7: 05/10/22 05:07 05/10/22 05:07 Labs: Laboratory Last Values WBC 16.0 K/mm3 (4.5-11.0) H 05/10/22 05:07 RBC 4.34 M/mm3 (3.65-5.03) 05/10/22 05:07 Hgb 12.2 gm/dl (11.8-15.2) 05/10/22 05:07 Hct 36.6 % (35.5-45.6) 05/10/22 05:07 MCV 84 fl (84-94) 05/10/22 05:07 MCH 28 pg (28-32) 05/10/22 05:07 MCHC 33 % (32-34) 05/10/22 05:07 RDW 15.2 % (13.2-15.2) 05/10/22 05:07 Plt Count 291 K/mm3 (140-440) 05/10/22 05:07 Add Manual Diff Complete 05/08/22 23:38 Total Counted 100 05/08/22 23:38 Seg Neutrophils % Patient Accounts Specialist 05/08/22 23:38 Seg Neuts % (Manual) 86.0 % (40.0-70.0) H 05/08/22 23:38 Band Neutrophils % 0 % 05/08/22 23:38 Lymphocytes % (Manual) 9.0 % (13.4-35.0) L 05/08/22 23:38 Reactive Lymphs % (Man) 0 % 05/08/22 23:38 Monocytes % (Manual) 5.0 % (0.0-7.3) 05/08/22 23:38 Eosinophils % (Manual) 0 % (0.0-4.3) 05/08/22 23:38 Basophils % (Manual) 0 % (0.0-1.8) 05/08/22 23:38 Metamyelocytes % 0 % 05/08/22 23:38 Myelocytes % 0 % 05/08/22 23:38 Promyelocytes % 0 % 05/08/22 23:38 Blast Cells % 0 % 05/08/22 23:38 Nucleated RBC % Not Reportable 05/08/22 23:38 Seg Neutrophils # Man 10.7 K/mm3 (1.8-7.7) H 05/08/22 23:38 Band Neutrophils # 0.0 K/mm3 05/08/22 23:38 Lymphocytes # (Manual) 1.1 K/mm3 (1.2-5.4) L 05/08/22 23:38 Abs React Lymphs (Man) 0.0 K/mm3 05/08/22 23:38 Monocytes # (Manual) 0.6 K/mm3 (0.0-0.8) 05/08/22 23:38 Eosinophils # (Manual) 0.0 K/mm3 (0.0-0.4) 05/08/22 23:38 Basophils # (Manual) 0.0 K/mm3 (0.0-0.1) 05/08/22 23:38 Metamyelocytes # 0.0 K/mm3 05/08/22 23:38 Myelocytes # 0.0 K/mm3 05/08/22 23:38 Promyelocytes # 0.0 K/mm3 05/08/22 23:38 Blast Cells # 0.0 K/mm3 05/08/22 23:38 WBC Morphology Not Reportable 05/08/22 23:38 Hypersegmented Neuts Not Reportable 05/08/22 23:38 Hyposegmented Neuts Not Reportable 05/08/22 23:38 Hypogranular Neuts Not Reportable 05/08/22 23:38 Smudge Cells Not Reportable 05/08/22 23:38 Toxic Granulation Not Reportable 05/08/22 23:38 Toxic Vacuolation Not Reportable 05/08/22 23:38 Dohle Bodies Not Reportable 05/08/22 23:38 Pelger-Huet Anomaly Not Reportable 05/08/22 23:38 Buster Rods Not Reportable 05/08/22 23:38 Platelet Estimate Not Reportable 05/08/22 23:38 Clumped Platelets Not Reportable 05/08/22 23:38 Plt Clumps, EDTA Not Reportable 05/08/22 23:38 Large Platelets Not Reportable 05/08/22 23:38 Giant Platelets Not Reportable 05/08/22 23:38 Platelet Satelliting Not Reportable 05/08/22 23:38 Plt Morphology Comment Not Reportable 05/08/22 23:38 RBC Morphology Normal 05/08/22 23:38 Dimorphic RBCs Not Reportable 05/08/22 23:38 Polychromasia Not Reportable 05/08/22 23:38 Hypochromasia Not Reportable 05/08/22 23:38 Poikilocytosis Not Reportable 05/08/22 23:38 Anisocytosis Not Reportable 05/08/22 23:38 Microcytosis Not Reportable 05/08/22 23:38 Macrocytosis Not Reportable 05/08/22 23:38 Spherocytes Not Reportable 05/08/22 23:38 Pappenheimer Bodies Not Reportable 05/08/22 23:38 Sickle Cells Not Reportable 05/08/22 23:38 Target Cells Not Reportable 05/08/22 23:38 Tear Drop Cells Not Reportable 05/08/22 23:38 Ovalocytes Not Reportable 05/08/22 23:38 Helmet Cells Not Reportable 05/08/22 23:38 [place] Bodies Not Reportable 05/08/22 23:38 [place] Rings Not Reportable 05/08/22 23:38 [place] Cells Not Reportable 05/08/22 23:38 Bite Cells Not Reportable 05/08/22 23:38 Crenated Cell Not Reportable 05/08/22 23:38 Elliptocytes Not Reportable 05/08/22 23:38 Acanthocytes (Spur) Not Reportable 05/08/22 23:38 Rouleaux Not Reportable 05/08/22 23:38 Hemoglobin C Crystals Not Reportable 05/08/22 23:38 Schistocytes Not Reportable 05/08/22 23:38 Malaria parasites Not Reportable 05/08/22 23:38 Markus Bodies Not Reportable 05/08/22 23:38 Hem Pathologist Commnt No 05/08/22 23:38 ABG pH 7.138 pH Units (7.350-7.450) L* 05/09/22 02:20 ABG pCO2 13.7 mm Hg 05/09/22 02:20 ABG pO2 116.6 mm Hg (80.0-90.0) H 05/09/22 02:20 ABG HCO3 4.5 mmol/L (20.0-26.0) L 05/09/22 02:20 ABG O2 Saturation 97.5 % (95.0-99.0) 05/09/22 02:20 ABG O2 Content 16.4 (0.0-44) 05/09/22 02:20 ABG Base Excess -22.3 mmol/L (-2.0-3.0) L 05/09/22 02:20 ABG Hemoglobin 12.0 gm/dl (14.0-18.0) L 05/09/22 02:20 ABG Carboxyhemoglobin 1.2 % (0.0-5.0) 05/09/22 02:20 ABG Methemoglobin 0.7 % (0.0-1.5) 05/09/22 02:20 Oxyhemoglobin 95.6 % (95.0-99.0) 05/09/22 02:20 FiO2 21 % 05/09/22 02:20 Sodium 140 mmol/L (137-145) 05/10/22 05:07 Potassium 4.4 mmol/L (3.6-5.0) 05/10/22 05:07 Chloride 107.5 mmol/L (98-107) H 05/10/22 05:07 Carbon Dioxide 17 mmol/L (22-30) L 05/10/22 05:07 Anion Gap 20 mmol/L 05/10/22 05:07 BUN 25 mg/dL (9-20) H 05/10/22 05:07 Creatinine 1.2 mg/dL (0.8-1.3) 05/10/22 05:07 Estimated GFR > 60 ml/min 05/10/22 05:07 BUN/Creatinine Ratio 21 % 05/10/22 05:07 Glucose 145 mg/dL (75-100) H 05/10/22 05:07 POC Glucose 145 mg/dL (70-105) H 05/10/22 01:53 Ketones Quantitative Small (Negative) 05/08/22 00:02 Lactic Acid 2.00 mmol/L (0.7-2.0) 05/09/22 17:32 Calcium 8.4 mg/dL (8.4-10.2) 05/10/22 05:07 Phosphorus 2.20 mg/dL (2.5-4.5) L 05/10/22 05:07 Magnesium 2.30 mg/dL (1.7-2.3) 05/10/22 05:07 Total Bilirubin 0.50 mg/dL (0.1-1.2) 05/10/22 05:07 AST 141 units/L (5-40) H 05/10/22 05:07 ALT 28 units/L (7-56) 05/10/22 05:07 Alkaline Phosphatase 114 units/L (35-129) 05/10/22 05:07 C-Reactive Protein 1.60 mg/dL (0.00-1.30) H 05/09/22 17:32 Total Protein 6.5 g/dL (6.3-8.2) 05/10/22 05:07 Albumin 3.6 g/dL (3.9-5) L 05/10/22 05:07 Albumin/Globulin Ratio 1.2 % 05/10/22 05:07 TSH 0.862 mlU/mL (0.270-4.200) 05/10/22 05:07 Urine Color Yellow (Yellow) 05/09/22 00:12 Urine Turbidity Clear (Clear) 05/09/22 00:12 Specific [place] (Man) 1.020 (1.003-1.030) 05/09/22 00:12 Ur Protein (Man) 3+ mg/dL (Negative) 05/09/22 00:12 Ur Ketones (Man) 3+ (Negative) 05/09/22 00:12 Ur Nitrite (Man) Negative (Negative) 05/09/22 00:12 Leukocyte Esterase (Man) Negative (Negative) 05/09/22 00:12 Urine WBC (Auto) < 1.0 /HPF (0.0-6.0) 05/09/22 00:12 Urine RBC (Auto) 1.0 /HPF (0.0-6.0) 05/09/22 00:12 U Epithel Cells (Auto) < 1.0 /HPF (0-13.0) 05/09/22 00:12 Urine RBC (Manual) Negative (Negative) 05/09/22 00:12 Urine Creatinine 198.4 mg/dL (0.1-20.0) H 05/09/22 18:50 Urine Sodium 24 mmol/L 05/09/22 18:50 Urine Total Protein 100 mg/dL (5-11.8) H 05/09/22 18:50 Microbiology: Microbiology 05/09/22 16:00 Peripheral/Venous Blood Culture - Preliminary Culture in Progress 05/09/22 16:00 Peripheral/Venous Blood Culture - Preliminary Culture in Progress Meek/IV: Voiding Method Indwelling Catheter Active Medications - Current Medications Current Medications: Generic Name Dose Route Start Last Admin Trade Name Freq PRN Reason Stop Dose Admin Acetaminophen 650 mg 05/09/22 02:57 Acetaminophen 325 Mg Tab PO Q6H PRN Pain MILD(1-3)/Fever >100.5/HOLT Atorvastatin Calcium 80 mg 05/09/22 22:00 05/09/22 21:14 Atorvastatin 40 Mg Tab PO 80 mg QHS ELIZA Administration Dextrose 0 ml 05/09/22 00:51 Dextrose 50% In Water (25gm) 50 Ml Syringe IV Q30MIN PRN Hypoglycemia Protocol Dextrose 50 ml 05/09/22 18:56 Dextrose 50% In Water (25gm) 50 Ml Syringe IV Q30MIN PRN Hypoglycemia Protocol Famotidine 20 mg 05/09/22 10:00 05/09/22 09:04 Famotidine 20 Mg/2 Ml Inj IV 05/10/22 09:59 20 mg QDAY ELIZA Administration Famotidine 20 mg 05/10/22 10:00 Famotidine 20 Mg Tab PO QDAY ELIZA Gabapentin 100 mg 05/10/22 10:00 Gabapentin 100 Mg Cap PO DAILY ELIZA Heparin Sodium (Porcine) 5,000 unit 05/09/22 06:00 05/10/22 06:24 Heparin 5,000 Unit/1 Ml Vial SUB-Q 5,000 unit Q8HR ELIZA Administration Sodium Chloride 1,000 mls @ 150 mls/hr 05/09/22 03:00 05/09/22 06:24 Nacl 0.9% 1000 Ml IV 150 mls/hr DIRECT ELIZA Administration Azithromycin 500 mg in 250 mls @ 250 mls/hr 05/09/22 17:00 05/09/22 16:58 Zithromax/Ns IV 250 mls/hr Q24H ELIZA Administration Ceftriaxone Sodium 2 gm in 100 mls @ 200 mls/hr 05/09/22 17:00 05/10/22 05:23 Rocephin/Ns 2 Gm/100 Ml IV 200 mls/hr Q12H [facility] Administration Protocol Insulin Glargine 15 units 05/09/22 20:00 05/09/22 21:14 Insulin Glargine 100 Units/Ml SUB-Q Not Given QHS [facility] Insulin Human Lispro 0 unit 05/09/22 22:00 05/10/22 06:24 Insulin Lispro 100 Unit/Ml SUB-Q Not Given Q4HR [facility] Protocol Magnesium Hydroxide 30 ml 05/09/22 02:57 Magnesium Hydroxide (Mom) Oral Liqd Udc PO Q4H PRN Constipation Morphine Sulfate 2 mg 05/09/22 02:57 05/09/22 22:58 Morphine 2 Mg/1 Ml Inj IV 2 mg Q4H PRN Administration Pain, Moderate (4-6) Ondansetron HCl 4 mg 05/09/22 02:57 05/09/22 22:58 Ondansetron 4 Mg/2 Ml Inj IV 4 mg Q8H PRN Administration Nausea And Vomiting Sodium Chloride 10 ml 05/09/22 10:00 05/09/22 21:14 Sodium Chloride 0.9% 10 Ml Flush Syringe IV 10 ml BID ELIZA Administration Sodium Chloride 10 ml 05/09/22 02:57 Sodium Chloride 0.9% 10 Ml Flush Syringe IV PRN PRN LINE FLUSH Nutrition/Malnutrition Assess - Dietary Evaluation Nutrition/Malnutrition Findings: Nutrition Notes Start: 05/09/22 0 8:29 Freq: Status: Active Protocol: Document 05/09/22 08:29 CHANI (Rec: 05/09/22 08:45 CHANI [email or web address]) Nutrition Notes Need for Assessment generated from: MD Order,Education Initial or Follow up Brief Note Current Diagnosis Acute Kidney Injury,Diabetes, Stroke Other Pertinent Diagnosis Hyperglycemia, DKA, Hyperkalemia. Current Diet NPO (since 05/09 03:01). 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 Pt currently on NPO. Pt is on Room Air, O2 saturation @ 100%, according to Physical Assessment History notes. Pt has missing teeth, according to Physical Assessment History notes. Pt presents L-BKA, according to Physical Assessment History notes. Pt complains of N/V/Abdominal Pain, according to History & Physical notes. Pt still in critical condition , not a candidate for Nutrition Education at the time, will assess feasibility on F/U. Percent of energy/protein needs met: Pt currently on NPO. Nutrition Intervention Follow-Up By: 05/11/22 Additional Comments Nutrition education will be provided at F/U, if feasible. When pertinent, start monitoring food tolerance, %PO intake of meals, and BM.
[2022-05-09] MEDS ORDERED: LACTATED RINGERS 1,000 ML IV ONE ×2 (14:20→15:00)
[2022-05-09 15:10] LABS: Calcium 8.1 mg/dL (8.4-10.2)
[2022-05-09] MEDS: cefTRIAXone/NS 2 GM/100 ML 2 GM/100 ML BAG IV SCH (16:58)
[2022-05-09] MEDS: AZITHROMYCIN/NS 500 MG/250 ML 500 MG/250 ML BAG IV SCH (16:58)
[2022-05-09 18:30] LABS: BUN/Creatinine Ratio 26; Blood Urea Nitrogen 36 mg/dL (9-20); Hemolysis Index 6
[2022-05-09 20:02] LABS: Creatinine,Urine 198.4 mg/dL (0.1-20.0)
[2022-05-09] MEDS: INSULIN GLARGINE 100 UNITS/ML SUB-Q SCH ×2 (20:31→21:14)
[2022-05-09] MEDS: INSULIN LISPRO 100 UNIT/ML SUB-Q SCH (21:58)
[2022-05-09] MEDS ORDERED: INSULIN LISPRO 100 UNIT/ML SUB-Q SCH (22:00)
[2022-05-09] MEDS ORDERED: NON-FORMULARY EACH (Atorvastatin Tablet) PO SCH (22:00)
--- NOTE | 2022-05-09 22:24 | Consultation ---
DATE OF CONSULTATION: 05/09/2022 PULMONARY AND CRITICAL CARE CONSULT NOTE CONSULTING PHYSICIAN: Dr. Livan Trejo. REASON FOR CONSULTATION: Diabetic ketoacidosis. CHIEF COMPLAINT AND HISTORY OF PRESENT ILLNESS: The patient is a now 62-year-old male with a past medical history of diabetes, who presented to the Emergency Room yesterday complaining of nausea and vomiting and abdominal pain have been going on for about 3 days. He denied fevers or chills. He denied any new wounds or sores on his body. He denied any chest pain, shortness of breath. He denied palpitations. He stated that he was taking his medications at home, but his Accu-Chek readings had been high. In the Emergency Room, he had a white cell count. He was found to be in diabetic ketoacidosis with hyperkalemia. Serum potassium of 6.9 and a serum bicarbonate of 6.0. Chest x-ray also revealed pulmonary infiltrates. ICU admission was requested and offered. When I stopped by to see him, he was resting in bed. He was feeling a whole lot better. He has remained on the IV insulin drip at 3 units per hour. This really is as much of the history of presentation as I have. He denies tobacco use right now. PAST MEDICAL HISTORY: Diabetes, hypertension, arthritis. PAST SURGICAL HISTORY: He has had a left [id number]-[id number] amputation 2 years ago. MEDICATIONS: He was on at the time I stopped by to see him, according to the medication physician record included the following: Tylenol 650 mg p.o. q.6 hours p.r.n. mild pain or fevers, D5 half NS at 125 mL per hour, Pepcid 20 mg p.o. daily, heparin 5000 units subcutaneous q.8 hours, insulin drip was going at 3 units per hour, morphine sulfate 2 mg IV q. 4 hours p.r.n. moderate pain and Zofran 4 mg IV q.8 hours p.r.n. nausea and vomiting. ALLERGIES: No known drug allergies. DIET: Well built gentleman. Denies acute weight loss or gain in the preceding few weeks to months. FAMILY AND SOCIAL HISTORY: Lives in the community. Denies alcohol, tobacco or illicit drug use or abuse. FAMILY HISTORY: Otherwise, noncontributory. REVIEW OF SYSTEMS: No loss of consciousness. No new onset seizures. No new onset focal weakness. Denies gross hematochezia or melena. Denies gross hematuria or dysuria. No hematemesis, no hemoptysis, no palpitations. Complete 13-system review of system was obtained. Pertinent positives and/or negatives as in body of history above, otherwise they are noncontributory. PHYSICAL EXAMINATION: VITAL SIGNS: On presentation in the Emergency Room, he was afebrile, temperature 97.6, pulse 110, respiratory rate of 20, blood pressure 100/56, O2 sats were 99% on room air. GENERAL: He is thin, elderly male. Normocephalic, atraumatic. Resting in bed with normal respiratory effort at rest. HEAD, EYES, EARS, NOSE AND THROAT: Anicteric. No conjunctival erythema. Oropharynx was moist. NECK: No gross jugular venous distention or thyromegaly. Grossly, there were no palpable lymph nodes in the supraclavicular or submandibular lymph node chains. LUNGS: Auscultation of both lung alvarez are unremarkable. Lungs were clear bilaterally with good bilateral air movement. HEART: Sounds 1 and 2 are heard at the time of my evaluation, regular rate and rhythm without overt rubs or murmurs. ABDOMEN: Soft, full, bowel sounds are positive, nontender, no palpable hepatosplenomegaly. EXTREMITIES: Without overt digital clubbing or cyanosis, no pedal edema. He has a left [id number] amputation. Pedal pulses 2+ on the right. NEUROLOGIC: Pupils are equal, round, about 4 mm, reactive to light. Extraocular muscle movements were intact. He moves all 4 extremities spontaneously. PSYCHIATRIC: His mood was normal. Affect was appropriate. He had intact judgment and insight. SKIN: Normal turgor in the areas I examined without overt cellulitis or rash. Please see the wound care nurses' notes for full description of his skin. LABORATORY DATA: From my review as follows: Admission white cell count 12,400, hemoglobin 13.0, hematocrit 42.4, platelet count 351. No band forms on the manual differential. Venous blood gas showed a pH of 7.14, pCO2 of 14, pO2 of 117 on room air. Serum sodium was 130, potassium 6.9, chloride 85, bicarbonate 6, BUN 47, creatinine 1.9, glucose was 804. Liver function test, essentially within normal limits. Urinalysis was unremarkable. No microbiology studies. A chest x-ray was done, it showed a globular heart with cardiomegaly, some hilar congestion. The film was rotated to the right. No gross pneumothorax, no pleural effusions, no gross bony fractures. ASSESSMENT: 1. Diabetic ketoacidosis. 2. Hyperkalemia. 3. History of hypertension. 4. History of cerebrovascular accident. PLAN: We will continue with the DKA protocol and hopefully we can soon be able to transfer him off IV insulin therapy. Electrolytes have been followed and corrected as necessary. Volume resuscitation is ongoing per protocol. Continued tobacco abstinence, has been counseled. He is appropriately on GI prophylaxis as well as DVT prophylaxis. Flu and pneumonia vaccination will be addressed per protocol. Thank you very much for the consult. We will follow along and make further recommendations as picture progresses/becomes clearer. TID: [id number] RECEIPT: [id number] ARIS/JOANNA
[2022-05-09] MEDS: ONDANSETRON 4 MG/2 ML INJ IV PRN (22:58)
[2022-05-09] MEDS: MORPHINE 2 MG/1 ML INJ IV PRN (22:58)
[2022-05-10 05:20] LABS: Hematocrit 36.6 % (35.5-45.6); Hemoglobin 12.2 gm/dl (11.8-15.2); Mean Corpuscular HGB Conc 33 % (32-34); Mean Corpuscular Volume 84 fl (84-94); Platelet Count 291 K/mm3 (140-440); Red Blood Count 4.34 M/mm3 (3.65-5.03); Red Cell Distribution Width 15.2 % (13.2-15.2)
[2022-05-10] MEDS: cefTRIAXone/NS 2 GM/100 ML 2 GM/100 ML BAG IV SCH (05:23)
[2022-05-10 05:48] LABS: Alanine Aminotransferase 28 units/L (7-56); Albumin 3.6 g/dL (3.9-5); BUN/Creatinine Ratio 21; Blood Urea Nitrogen 25 mg/dL (9-20); Calcium 8.4 mg/dL (8.4-10.2); Hemolysis Index 6
[2022-05-10] MEDS: HEPARIN 5,000 UNIT/1 ML VIAL SUB-Q SCH ×3 (06:24→22:30)
[2022-05-10] MEDS: INSULIN LISPRO 100 UNIT/ML SUB-Q SCH ×4 (06:24→23:46)
[2022-05-10] MEDS: ONDANSETRON 4 MG/2 ML INJ IV PRN ×2 (09:02→18:37)
[2022-05-10] MEDS: FAMOTIDINE 20 MG TAB PO SCH (09:02)
[2022-05-10] MEDS: GABAPENTIN 100 MG CAP PO SCH (09:02)
[2022-05-10] MEDS: TAMSULOSIN 0.4 MG CAP PO SCH (09:04)
[2022-05-10] MEDS ORDERED: NON-FORMULARY EACH (Gabapentin Capsule) PO SCH (10:00)
--- NOTE | 2022-05-10 10:34 | Progress Note ---
<PETRA PEREZ - Last Filed: 05/10/22 19:00> Assessment and Plan Assessment and plan: This is a 62-year-old male with known past medical history of HTN, arthritis, and IDDM complicated by diabetic neuropathy s/p LBKA, admitted for DKA Hospital Course to Date: 05/09: Remains in DKA with hyperkalemia and metabolic acidosis this am. Additional IVF administered, continue insulin gtt and IVF resuscitation per DKA protocol. Renal function is unchanged, patient denied any previous renal issues. Probably vasomotor nephropathy secondary to DKA. Serial labs ordered. Continue to monitor BG, anion gap, and electrolytes. 05/10: Transitioned to subQ insulin overnight. Still c/o abdominal cramping with nausea but no vomiting. Abdominal distention also noted- KUB imaging reviewed, suggesting constipation. Patient reported he has not had a BM in probably over a week. BR added. Patient is afebrile this am with worsen leukocytosis, VSS. COVID PCR is negative, CRP, and TSH noted. Procal still pending, continue current empiric IV abx for now. Germain catheter was also inserted overnight due to urinary retention, renal function in normal range this am. Flomax added, D/C germain per protocol in the am. PT/OT consulted for discharge plan. Patient is stable for transfer to the floor. Assessment and Plan #Diabetic Ketoacidosis(DKA) #Insulin Dependent Diabetes Mellitus(IDDM) #Anion Gap Metabolic Acidosis - On DKA protocol - BG and anion gap still elevated this am - Additional IVF bolus ordered - Continue insulin gtt and IVF resuscitation per DKA protocol - Hgb A1c pending - Monitor and replace electrolytes as needed - Monitor anion gap, serial Labs ordered #Acute Kidney Injury([place]) probably Vasomotor Nephropathy #Urinary Retention #Hyperkalemia-resolved #Metabolic Acidosis-resolved - secondary to Above - Baseline renal function is unknown, patient reported no prior history of renal disease - Presented with K of 6.9, Scr. 1.9. FeNa suggested Prerenal - s/p DKA protocol - Renal function normalized this am - Urinary retention overnight, germain inserted - Flomax added, D/C germain per protocol in the am - Strict intake and output - Avoid nephrotoxic medications; Renally dose medications - Monitor and replace electrolytes as needed #SIRS #Leukocytosis #Bilateral Lungs infiltrate - With leukocytosis, low grade temp 100.3, with low BP - UA is unremarkable - Chest x-ray shows probable bilateral edema/atelectasis without other acute findings - COVID PCR negative - Patient is stable on RA, SPO2 above 95% - COVID PCR negative - Empiric IV Abx initiated for possible CAP - Procal pending - F/U on cultures - Daily CBC monitor #Hypertension - BP soft this am, SR on the monitor - Hold antihypertensive therapy today, resume home meds tomorrow - Continue blood pressure monitor per protocol - Maintain SBP less than 160 #Diabetic Neuropathy s/p LBKA - Chronic, continue support measures - Home meds resumed #GI/DVT Prophylaxis - PPI- Pepcid - Heparin SubQ - SCDs to bilateral lower extremities while in bed #Advance Care Planning - Disease education data, care plan, diagnoses, and prognosis were discussed with patient at the bedside. Patient is a FULL code. Patient acknowledged understanding and agreed with current care plan. The high probability of a clinically significant, sudden or life threatening deterioration of the [multiple] system(s) required my full and direct attention, intervention and personal management. The aggregate critical care time was [60] minutes. This time is in addition to time spent performing reported procedures but includes the following: [x] Data Review and interpretation [x] Patient assessment and monitoring of vital signs [x] Documentation [x] Medication orders and management Disposition Plan: Transfer to the floor Total Time Spent with Patient (Minutes): 60 History Interval history: Patient seen and examined at the bedside. Remains stable on RA, c/o abdominal cramping, nausea but no vomiting. Abdominal distention is noted, but soft and nontender, with positive BS. Patient was transitioned to SubQ insulin overnight. SR with 1st degree noted on the monitor, BP stable. Germain inserted overnight due to urinary retention. Otherwise, SEGUNDO overnight Hospitalist Physical - Physical exam Narrative exam: General appearance: Present: no acute distress, well-nourished, obese - EENT Eyes: Present: PERRL, EOM intact ENT: hearing intact - Neck Neck: Present: normal ROM - Respiratory Respiratory effort: normal Respiratory: bilateral: diminished - Cardiovascular Rhythm: regular Heart Sounds: Present: S1 & S2 - Extremities Extremities: no ischemia, pulses intact, pulses symmetrical, abnormal (Left BKA) Peripheral Pulses: within normal limits - Abdominal General gastrointestinal: soft, distended, normal bowel sounds - Integumentary Integumentary: Present: warm, dry - Psychiatric Psychiatric: appropriate mood/affect, cooperative - Neurologic Neurologic: CNII-XII intact, moves all extremities - Allied Health Allied health notes reviewed: nursing - Constitutional Vitals: Temp Pulse Resp BP Pulse Ox 98.9 F 92 H 34 H 140/67 98 05/10/22 07:16 05/10/22 10:00 05/10/22 10:00 05/10/22 10:00 05/10/22 10:00 Results - Labs CBC & Chem 7: 05/10/22 05:07 05/10/22 05:07 Labs: Laboratory Last Values WBC 16.0 K/mm3 (4.5-11.0) H 05/10/22 05:07 RBC 4.34 M/mm3 (3.65-5.03) 05/10/22 05:07 Hgb 12.2 gm/dl (11.8-15.2) 05/10/22 05:07 Hct 36.6 % (35.5-45.6) 05/10/22 05:07 MCV 84 fl (84-94) 05/10/22 05:07 MCH 28 pg (28-32) 05/10/22 05:07 MCHC 33 % (32-34) 05/10/22 05:07 RDW 15.2 % (13.2-15.2) 05/10/22 05:07 Plt Count 291 K/mm3 (140-440) 05/10/22 05:07 Add Manual Diff Complete 05/08/22 23:38 Total Counted 100 05/08/22 23:38 Seg Neutrophils % Insurance And Financial Services Agent 05/08/22 23:38 Seg Neuts % (Manual) 86.0 % (40.0-70.0) H 05/08/22 23:38 Band Neutrophils % 0 % 05/08/22 23:38 Lymphocytes % (Manual) 9.0 % (13.4-35.0) L 05/08/22 23:38 Reactive Lymphs % (Man) 0 % 05/08/22 23:38 Monocytes % (Manual) 5.0 % (0.0-7.3) 05/08/22 23:38 Eosinophils % (Manual) 0 % (0.0-4.3) 05/08/22 23:38 Basophils % (Manual) 0 % (0.0-1.8) 05/08/22 23:38 Metamyelocytes % 0 % 05/08/22 23:38 Myelocytes % 0 % 05/08/22 23:38 Promyelocytes % 0 % 05/08/22 23:38 Blast Cells % 0 % 05/08/22 23:38 Nucleated RBC % Not Reportable 05/08/22 23:38 Seg Neutrophils # Man 10.7 K/mm3 (1.8-7.7) H 05/08/22 23:38 Band Neutrophils # 0.0 K/mm3 05/08/22 23:38 Lymphocytes # (Manual) 1.1 K/mm3 (1.2-5.4) L 05/08/22 23:38 Abs React Lymphs (Man) 0.0 K/mm3 05/08/22 23:38 Monocytes # (Manual) 0.6 K/mm3 (0.0-0.8) 05/08/22 23:38 Eosinophils # (Manual) 0.0 K/mm3 (0.0-0.4) 05/08/22 23:38 Basophils # (Manual) 0.0 K/mm3 (0.0-0.1) 05/08/22 23:38 Metamyelocytes # 0.0 K/mm3 05/08/22 23:38 Myelocytes # 0.0 K/mm3 05/08/22 23:38 Promyelocytes # 0.0 K/mm3 05/08/22 23:38 Blast Cells # 0.0 K/mm3 05/08/22 23:38 WBC Morphology Not Reportable 05/08/22 23:38 Hypersegmented Neuts Not Reportable 05/08/22 23:38 Hyposegmented Neuts Not Reportable 05/08/22 23:38 Hypogranular Neuts Not Reportable 05/08/22 23:38 Smudge Cells Not Reportable 05/08/22 23:38 Toxic Granulation Not Reportable 05/08/22 23:38 Toxic Vacuolation Not Reportable 05/08/22 23:38 Dohle Bodies Not Reportable 05/08/22 23:38 Pelger-Huet Anomaly Not Reportable 05/08/22 23:38 Buster Rods Not Reportable 05/08/22 23:38 Platelet Estimate Not Reportable 05/08/22 23:38 Clumped Platelets Not Reportable 05/08/22 23:38 Plt Clumps, EDTA Not Reportable 05/08/22 23:38 Large Platelets Not Reportable 05/08/22 23:38 Giant Platelets Not Reportable 05/08/22 23:38 Platelet Satelliting Not Reportable 05/08/22 23:38 Plt Morphology Comment Not Reportable 05/08/22 23:38 RBC Morphology Normal 05/08/22 23:38 Dimorphic RBCs Not Reportable 05/08/22 23:38 Polychromasia Not Reportable 05/08/22 23:38 Hypochromasia Not Reportable 05/08/22 23:38 Poikilocytosis Not Reportable 05/08/22 23:38 Anisocytosis Not Reportable 05/08/22 23:38 Microcytosis Not Reportable 05/08/22 23:38 Macrocytosis Not Reportable 05/08/22 23:38 Spherocytes Not Reportable 05/08/22 23:38 Pappenheimer Bodies Not Reportable 05/08/22 23:38 Sickle Cells Not Reportable 05/08/22 23:38 Target Cells Not Reportable 05/08/22 23:38 Tear Drop Cells Not Reportable 05/08/22 23:38 Ovalocytes Not Reportable 05/08/22 23:38 Helmet Cells Not Reportable 05/08/22 23:38 [place] Bodies Not Reportable 05/08/22 23:38 [place] Rings Not Reportable 05/08/22 23:38 Jeramie Cells Not Reportable 05/08/22 23:38 Bite Cells Not Reportable 05/08/22 23:38 Crenated Cell Not Reportable 05/08/22 23:38 Elliptocytes Not Reportable 05/08/22 23:38 Acanthocytes (Spur) Not Reportable 05/08/22 23:38 Rouleaux Not Reportable 05/08/22 23:38 Hemoglobin C Crystals Not Reportable 05/08/22 23:38 Schistocytes Not Reportable 05/08/22 23:38 Malaria parasites Not Reportable 05/08/22 23:38 Markus Bodies Not Reportable 05/08/22 23:38 Hem Pathologist Commnt No 05/08/22 23:38 ABG pH 7.138 pH Units (7.350-7.450) L* 05/09/22 02:20 ABG pCO2 13.7 mm Hg 05/09/22 02:20 ABG pO2 116.6 mm Hg (80.0-90.0) H 05/09/22 02:20 ABG HCO3 4.5 mmol/L (20.0-26.0) L 05/09/22 02:20 ABG O2 Saturation 97.5 % (95.0-99.0) 05/09/22 02:20 ABG O2 Content 16.4 (0.0-44) 05/09/22 02:20 ABG Base Excess -22.3 mmol/L (-2.0-3.0) L 05/09/22 02:20 ABG Hemoglobin 12.0 gm/dl (14.0-18.0) L 05/09/22 02:20 ABG Carboxyhemoglobin 1.2 % (0.0-5.0) 05/09/22 02:20 ABG Methemoglobin 0.7 % (0.0-1.5) 05/09/22 02:20 Oxyhemoglobin 95.6 % (95.0-99.0) 05/09/22 02:20 FiO2 21 % 05/09/22 02:20 Sodium 140 mmol/L (137-145) 05/10/22 05:07 Potassium 4.4 mmol/L (3.6-5.0) 05/10/22 05:07 Chloride 107.5 mmol/L (98-107) H 05/10/22 05:07 Carbon Dioxide 17 mmol/L (22-30) L 05/10/22 05:07 Anion Gap 20 mmol/L 05/10/22 05:07 BUN 25 mg/dL (9-20) H 05/10/22 05:07 Creatinine 1.2 mg/dL (0.8-1.3) 05/10/22 05:07 Estimated GFR > 60 ml/min 05/10/22 05:07 BUN/Creatinine Ratio 21 % 05/10/22 05:07 Glucose 145 mg/dL (75-100) H 05/10/22 05:07 POC Glucose 146 mg/dL (70-105) H 05/10/22 07:51 Ketones Quantitative Small (Negative) 05/08/22 00:02 Lactic Acid 2.00 mmol/L (0.7-2.0) 05/09/22 17:32 Calcium 8.4 mg/dL (8.4-10.2) 05/10/22 05:07 Phosphorus 2.20 mg/dL (2.5-4.5) L 05/10/22 05:07 Magnesium 2.30 mg/dL (1.7-2.3) 05/10/22 05:07 Total Bilirubin 0.50 mg/dL (0.1-1.2) 05/10/22 05:07 AST 141 units/L (5-40) H 05/10/22 05:07 ALT 28 units/L (7-56) 05/10/22 05:07 Alkaline Phosphatase 114 units/L (35-129) 05/10/22 05:07 C-Reactive Protein 1.60 mg/dL (0.00-1.30) H 05/09/22 17:32 Total Protein 6.5 g/dL (6.3-8.2) 05/10/22 05:07 Albumin 3.6 g/dL (3.9-5) L 05/10/22 05:07 Albumin/Globulin Ratio 1.2 % 05/10/22 05:07 TSH 0.862 mlU/mL (0.270-4.200) 05/10/22 05:07 Urine Color Yellow (Yellow) 05/09/22 00:12 Urine Turbidity Clear (Clear) 05/09/22 00:12 Specific [place] (Man) 1.020 (1.003-1.030) 05/09/22 00:12 Ur Protein (Man) 3+ mg/dL (Negative) 05/09/22 00:12 Ur Ketones (Man) 3+ (Negative) 05/09/22 00:12 Ur Nitrite (Man) Negative (Negative) 05/09/22 00:12 Leukocyte Esterase (Man) Negative (Negative) 05/09/22 00:12 Urine WBC (Auto) < 1.0 /HPF (0.0-6.0) 05/09/22 00:12 Urine RBC (Auto) 1.0 /HPF (0.0-6.0) 05/09/22 00:12 U Epithel Cells (Auto) < 1.0 /HPF (0-13.0) 05/09/22 00:12 Urine RBC (Manual) Negative (Negative) 05/09/22 00:12 Urine Creatinine 198.4 mg/dL (0.1-20.0) H 05/09/22 18:50 Urine Sodium 24 mmol/L 05/09/22 18:50 Urine Total Protein 100 mg/dL (5-11.8) H 05/09/22 18:50 Coronavirus (PCR) Negative (Negative) 05/10/22 10:11 Microbiology: Microbiology 05/09/22 16:00 Peripheral/Venous Blood Culture - Preliminary Culture in Progress 05/09/22 16:00 Peripheral/Venous Blood Culture - Preliminary Culture in Progress Germain/IV: Voiding Method Indwelling Catheter Active Medications - Current Medications Current Medications: Generic Name Dose Route Start Last Admin Trade Name Freq PRN Reason Stop Dose Admin Acetaminophen 650 mg 05/09/22 02:57 Acetaminophen 325 Mg Tab PO Q6H PRN Pain MILD(1-3)/Fever >100.5/HOLT Atorvastatin Calcium 80 mg 05/09/22 22:00 05/09/22 21:14 Atorvastatin 40 Mg Tab PO 80 mg QHS ELIZA Administration Dextrose 50 ml 05/09/22 18:56 Dextrose 50% In Water (25gm) 50 Ml Syringe IV Q30MIN PRN Hypoglycemia Protocol Famotidine 20 mg 05/10/22 10:00 05/10/22 09:02 Famotidine 20 Mg Tab PO 20 mg QDAY ELIZA Administration Gabapentin 100 mg 05/10/22 10:00 05/10/22 09:02 Gabapentin 100 Mg Cap PO 100 mg DAILY ELIZA Administration Heparin Sodium (Porcine) 5,000 unit 05/09/22 06:00 05/10/22 06:24 Heparin 5,000 Unit/1 Ml Vial SUB-Q 5,000 unit Q8HR ELIZA Administration Sodium Chloride 1,000 mls @ 150 mls/hr 05/09/22 03:00 05/09/22 06:24 Nacl 0.9% 1000 Ml IV 150 mls/hr DIRECT ELIZA Administration Azithromycin 500 mg in 250 mls @ 250 mls/hr 05/09/22 17:00 05/09/22 16:58 Zithromax/Ns IV 05/13/22 17:59 250 mls/hr Q24H ELIZA Administration Ceftriaxone Sodium 2 gm in 100 mls @ 200 mls/hr 05/11/22 11:00 Rocephin/Ns 2 Gm/100 Ml IV 05/13/22 11:29 Q24H [facility] Protocol Insulin Glargine 15 units 05/09/22 20:00 05/09/22 21:14 Insulin Glargine 100 Units/Ml SUB-Q Not Given QHS [facility] Insulin Human Lispro 0 unit 05/10/22 11:30 Insulin Lispro 100 Unit/Ml SUB-Q ACHS [facility] Protocol Magnesium Hydroxide 30 ml 05/09/22 02:57 Magnesium Hydroxide (Mom) Oral Liqd Udc PO Q4H PRN Constipation Morphine Sulfate 2 mg 05/09/22 02:57 05/09/22 22:58 Morphine 2 Mg/1 Ml Inj IV 2 mg Q4H PRN Administration Pain, Moderate (4-6) Ondansetron HCl 4 mg 05/09/22 02:57 05/10/22 09:02 Ondansetron 4 Mg/2 Ml Inj IV 4 mg Q8H PRN Administration Nausea And Vomiting Sodium Chloride 10 ml 05/09/22 10:00 05/10/22 09:02 Sodium Chloride 0.9% 10 Ml Flush Syringe IV 10 ml BID ELIZA Administration Sodium Chloride 10 ml 05/09/22 02:57 Sodium Chloride 0.9% 10 Ml Flush Syringe IV PRN PRN LINE FLUSH Sodium Phosphate 250 mg 05/10/22 10:00 K-Phos Neutral 250 Mg Tab PO 05/10/22 18:01 QID [facility] Tamsulosin HCl 0.4 mg 05/10/22 10:00 05/10/22 09:04 Tamsulosin 0.4 Mg Cap PO 0.4 mg QDAY ELIZA Administration Nutrition/Malnutrition Assess - Dietary Evaluation Nutrition/Malnutrition Findings: Nutrition Notes Start: 05/09/22 08:29 Freq: Status: Active Protocol: Document 05/09/22 08:29 CHANI (Rec: 05/09/22 08:45 CHANI [id number]) Nutrition Notes Need for Assessment generated from: MD Order,Education Initial or Follow up Brief Note Current Diagnosis Acute Kidney Injury,Diabetes, Stroke Other Pertinent Diagnosis Hyperglycemia, DKA, Hyperkalemia. Current Diet NPO (since 05/09 03:01). Height 5 ft 10 in Weight 66 kg [place] Body Weight (kg) 75.45 BMI 20.8 Intake Prior to Admission Good Weight change and time frame Pt denies having loss body weight [place] BLOWER. Weight Status Appropriate Subjective/Other Information RD consult for nutrition education assessment. Pt currently on NPO. Pt is on Room Air, O2 saturation @ 100%, according to Physical Assessment History notes. Pt has missing teeth, according to Physical Assessment History notes. Pt presents L-BKA, according to Physical Assessment History notes. Pt complains of N/V/Abdominal Pain, according to History & Physical notes. Pt still in critical condition , not a candidate for Nutrition Education at the time, will assess feasibility on F/U. Percent of energy/protein needs met: Pt currently on NPO. Nutrition Intervention Follow-Up By: 05/11/22 Additional Comments Nutrition education will be provided at F/U, if feasible. When pertinent, start monitoring food tolerance, %PO intake of meals, and BM. <ROSA KOHLER - Last Filed: 05/11/22 07:25> Assessment and Plan Assessment and plan: I saw and evaluated the patient. I agree with the findings and the plan of care as documented in the Nurse Practitioner's~note, with the following corrections and additions. Hospitalist Physical - Constitutional Vitals: Temp Pulse Resp BP Pulse Ox 99.0 F 91 H 20 136/71 99 05/10/22 17:23 05/10/22 22:28 05/10/22 22:28 05/10/22 22:28 05/10/22 22:28 Results - Labs CBC & Chem 7: 05/11/22 05:30 05/11/22 05:30 Labs: Laboratory Last Values WBC 12.8 K/mm3 (4.5-11.0) H 05/11/22 05:30 RBC 3.73 M/mm3 (3.65-5.03) 05/11/22 05:30 Hgb 10.7 gm/dl (11.8-15.2) L 05/11/22 05:30 Hct 31.5 % (35.5-45.6) L 05/11/22 05:30 MCV 84 fl (84-94) 05/11/22 05:30 MCH 29 pg (28-32) 05/11/22 05:30 MCHC 34 % (32-34) 05/11/22 05:30 RDW 15.1 % (13.2-15.2) 05/11/22 05:30 Plt Count 260 K/mm3 (140-440) 05/11/22 05:30 Add Manual Diff Complete 05/08/22 23:38 Total Counted 100 05/08/22 23:38 Seg Neutrophils % Insurance And Financial Services Agent 05/08/22 23:38 Seg Neuts % (Manual) 86.0 % (40.0-70.0) H 05/08/22 23:38 Band Neutrophils % 0 % 05/08/22 23:38 Lymphocytes % (Manual) 9.0 % (13.4-35.0) L 05/08/22 23:38 Reactive Lymphs % (Man) 0 % 05/08/22 23:38 Monocytes % (Manual) 5.0 % (0.0-7.3) 05/08/22 23:38 Eosinophils % (Manual) 0 % (0.0-4.3) 05/08/22 23:38 Basophils % (Manual) 0 % (0.0-1.8) 05/08/22 23:38 Metamyelocytes % 0 % 05/08/22 23:38 Myelocytes % 0 % 05/08/22 23:38 Promyelocytes % 0 % 05/08/22 23:38 Blast Cells % 0 % 05/08/22 23:38 Nucleated RBC % Not Reportable 05/08/22 23:38 Seg Neutrophils # Man 10.7 K/mm3 (1.8-7.7) H 05/08/22 23:38 Band Neutrophils # 0.0 K/mm3 05/08/22 23:38 Lymphocytes # (Manual) 1.1 K/mm3 (1.2-5.4) L 05/08/22 23:38 Abs React Lymphs (Man) 0.0 K/mm3 05/08/22 23:38 Monocytes # (Manual) 0.6 K/mm3 (0.0-0.8) 05/08/22 23:38 Eosinophils # (Manual) 0.0 K/mm3 (0.0-0.4) 05/08/22 23:38 Basophils # (Manual) 0.0 K/mm3 (0.0-0.1) 05/08/22 23:38 Metamyelocytes # 0.0 K/mm3 05/08/22 23:38 Myelocytes # 0.0 K/mm3 05/08/22 23:38 Promyelocytes # 0.0 K/mm3 05/08/22 23:38 Blast Cells # 0.0 K/mm3 05/08/22 23:38 WBC Morphology Not Reportable 05/08/22 23:38 Hypersegmented Neuts Not Reportable 05/08/22 23:38 Hyposegmented Neuts Not Reportable 05/08/22 23:38 Hypogranular Neuts Not Reportable 05/08/22 23:38 Smudge Cells Not Reportable 05/08/22 23:38 Toxic Granulation Not Reportable 05/08/22 23:38 Toxic Vacuolation Not Reportable 05/08/22 23:38 Dohle Bodies Not Reportable 05/08/22 23:38 Pelger-Huet Anomaly Not Reportable 05/08/22 23:38 Buster Rods Not Reportable 05/08/22 23:38 Platelet Estimate Not Reportable 05/08/22 23:38 Clumped Platelets Not Reportable 05/08/22 23:38 Plt Clumps, EDTA Not Reportable 05/08/22 23:38 Large Platelets Not Reportable 05/08/22 23:38 Giant Platelets Not Reportable 05/08/22 23:38 Platelet Satelliting Not Reportable 05/08/22 23:38 Plt Morphology Comment Not Reportable 05/08/22 23:38 RBC Morphology Normal 05/08/22 23:38 Dimorphic RBCs Not Reportable 05/08/22 23:38 Polychromasia Not Reportable 05/08/22 23:38 Hypochromasia Not Reportable 05/08/22 23:38 Poikilocytosis Not Reportable 05/08/22 23:38 Anisocytosis Not Reportable 05/08/22 23:38 Microcytosis Not Reportable 05/08/22 23:38 Macrocytosis Not Reportable 05/08/22 23:38 Spherocytes Not Reportable 05/08/22 23:38 Pappenheimer Bodies Not Reportable 05/08/22 23:38 Sickle Cells Not Reportable 05/08/22 23:38 Target Cells Not Reportable 05/08/22 23:38 Tear Drop Cells Not Reportable 05/08/22 23:38 Ovalocytes Not Reportable 05/08/22 23:38 Helmet Cells Not Reportable 05/08/22 23:38 [place] Bodies Not Reportable 05/08/22 23:38 [place] Rings Not Reportable 05/08/22 23:38 Jeramie Cells Not Reportable 05/08/22 23:38 Bite Cells Not Reportable 05/08/22 23:38 Crenated Cell Not Reportable 05/08/22 23:38 Elliptocytes Not Reportable 05/08/22 23:38 Acanthocytes (Spur) Not Reportable 05/08/22 23:38 Rouleaux Not Reportable 05/08/22 23:38 Hemoglobin C Crystals Not Reportable 05/08/22 23:38 Schistocytes Not Reportable 05/08/22 23:38 Malaria parasites Not Reportable 05/08/22 23:38 Markus Bodies Not Reportable 05/08/22 23:38 Hem Pathologist Commnt No 05/08/22 23:38 ABG pH 7.138 pH Units (7.350-7.450) L* 05/09/22 02:20 ABG pCO2 13.7 mm Hg 05/09/22 02:20 ABG pO2 116.6 mm Hg (80.0-90.0) H 05/09/22 02:20 ABG HCO3 4.5 mmol/L (20.0-26.0) L 05/09/22 02:20 ABG O2 Saturation 97.5 % (95.0-99.0) 05/09/22 02:20 ABG O2 Content 16.4 (0.0-44) 05/09/22 02:20 ABG Base Excess -22.3 mmol/L (-2.0-3.0) L 05/09/22 02:20 ABG Hemoglobin 12.0 gm/dl (14.0-18.0) L 05/09/22 02:20 ABG Carboxyhemoglobin 1.2 % (0.0-5.0) 05/09/22 02:20 ABG Methemoglobin 0.7 % (0.0-1.5) 05/09/22 02:20 Oxyhemoglobin 95.6 % (95.0-99.0) 05/09/22 02:20 FiO2 21 % 05/09/22 02:20 Sodium 141 mmol/L (137-145) 05/11/22 05:30 Potassium 4.2 mmol/L (3.6-5.0) 05/11/22 05:30 Chloride 103.7 mmol/L (98-107) 05/11/22 05:30 Carbon Dioxide 20 mmol/L (22-30) L 05/11/22 05:30 Anion Gap 22 mmol/L 05/11/22 05:30 BUN 17 mg/dL (9-20) 05/11/22 05:30 Creatinine 1.0 mg/dL (0.8-1.3) 05/11/22 05:30 Estimated GFR > 60 ml/min 05/11/22 05:30 BUN/Creatinine Ratio 17 % 05/11/22 05:30 Glucose 241 mg/dL (75-100) H 05/11/22 05:30 POC Glucose 257 mg/dL (70-105) H 05/10/22 21:21 Ketones Quantitative Small (Negative) 05/08/22 00:02 Lactic Acid 2.00 mmol/L (0.7-2.0) 05/09/22 17:32 Calcium 8.2 mg/dL (8.4-10.2) L 05/11/22 05:30 Phosphorus 2.00 mg/dL (2.5-4.5) L 05/11/22 05:30 Magnesium 2.30 mg/dL (1.7-2.3) 05/11/22 05:30 Total Bilirubin 0.50 mg/dL (0.1-1.2) 05/10/22 05:07 AST 141 units/L (5-40) H 05/10/22 05:07 ALT 28 units/L (7-56) 05/10/22 05:07 Alkaline Phosphatase 114 units/L (35-129) 05/10/22 05:07 C-Reactive Protein 1.60 mg/dL (0.00-1.30) H 05/09/22 17:32 Total Protein 6.5 g/dL (6.3-8.2) 05/10/22 05:07 Albumin 3.6 g/dL (3.9-5) L 05/10/22 05:07 Albumin/Globulin Ratio 1.2 % 05/10/22 05:07 Procalcitonin 1.28 ng/mL (<0.15) 05/09/22 17:32 TSH 0.862 mlU/mL (0.270-4.200) 05/10/22 05:07 Urine Color Yellow (Yellow) 05/09/22 00:12 Urine Turbidity Clear (Clear) 05/09/22 00:12 Specific [place] (Man) 1.020 (1.003-1.030) 05/09/22 00:12 Ur Protein (Man) 3+ mg/dL (Negative) 05/09/22 00:12 Ur Ketones (Man) 3+ (Negative) 05/09/22 00:12 Ur Nitrite (Man) Negative (Negative) 05/09/22 00:12 Leukocyte Esterase (Man) Negative (Negative) 05/09/22 00:12 Urine WBC (Auto) < 1.0 /HPF (0.0-6.0) 05/09/22 00:12 Urine RBC (Auto) 1.0 /HPF (0.0-6.0) 05/09/22 00:12 U Epithel Cells (Auto) < 1.0 /HPF (0-13.0) 05/09/22 00:12 Urine RBC (Manual) Negative (Negative) 05/09/22 00:12 Urine Creatinine 198.4 mg/dL (0.1-20.0) H 05/09/22 18:50 Urine Sodium 24 mmol/L 05/09/22 18:50 Urine Total Protein 100 mg/dL (5-11.8) H 05/09/22 18:50 Coronavirus (PCR) TNR 05/10/22 10:11 SARS-CoV-2 (PCR) Negative (Negative) 05/10/22 10:11 Microbiology: Microbiology 05/09/22 16:00 Peripheral/Venous Blood Culture - Preliminary NO GROWTH AFTER 24 HOURS 05/09/22 16:00 Peripheral/Venous Blood Culture - Preliminary NO GROWTH AFTER 24 HOURS Germain/IV: Voiding Method Indwelling Catheter Active Medications - Current Medications Current Medications: Generic Name Dose Route Start Last Admin Trade Name Freq PRN Reason Stop Dose Admin Acetaminophen 650 mg 05/09/22 02:57 Acetaminophen 325 Mg Tab PO Q6H PRN Pain MILD(1-3)/Fever >100.5/HOLT Atorvastatin Calcium 80 mg 05/09/22 22:00 05/10/22 22:29 Atorvastatin 40 Mg Tab PO 80 mg QHS ELIZA Administration Dextrose 50 ml 05/09/22 18:56 Dextrose 50% In Water (25gm) 50 Ml Syringe IV Q30MIN PRN Hypoglycemia Protocol Docusate Sodium 100 mg 05/10/22 22:00 05/10/22 22:30 Docusate Sodium 100 Mg Cap PO 100 mg BID ELIZA Administration Famotidine 20 mg 05/10/22 10:00 05/10/22 09:02 Famotidine 20 Mg Tab PO 20 mg QDAY ELIZA Administration Gabapentin 100 mg 05/10/22 10:00 05/10/22 09:02 Gabapentin 100 Mg Cap PO 100 mg DAILY ELIZA Administration Heparin Sodium (Porcine) 5,000 unit 05/09/22 06:00 05/11/22 05:18 Heparin 5,000 Unit/1 Ml Vial SUB-Q 5,000 unit Q8HR ELIZA Administration Sodium Chloride 1,000 mls @ 150 mls/hr 05/09/22 03:00 05/10/22 22:50 Nacl 0.9% 1000 Ml IV 150 mls/hr DIRECT ELIZA Administration Azithromycin 500 mg in 250 mls @ 250 mls/hr 05/09/22 17:00 05/10/22 18:09 Zithromax/Ns IV 05/13/22 17:59 250 mls/hr Q24H ELIZA Administration Ceftriaxone Sodium 2 gm in 100 mls @ 200 mls/hr 05/11/22 11:00 Rocephin/Ns 2 Gm/100 Ml IV 05/13/22 11:29 Q24H ELIZA Protocol Insulin Glargine 15 units 05/09/22 20:00 05/10/22 23:41 Insulin Glargine 100 Units/Ml SUB-Q 15 units QHS ELIZA Administration Insulin Human Lispro 0 unit 05/10/22 11:30 05/10/22 23:46 Insulin Lispro 100 Unit/Ml SUB-Q 4 unit ACHS ELIZA Administration Protocol Magnesium Hydroxide 30 ml 05/09/22 02:57 05/11/22 03:14 Magnesium Hydroxide (Mom) Oral Liqd Udc PO 30 ml Q4H PRN Administration Constipation Magnesium Hydroxide 30 ml 05/10/22 13:00 05/10/22 12:29 Magnesium Hydroxide (Mom) Oral Liqd Udc PO 05/11/22 12:59 30 ml ONCE ELIZA Administration Morphine Sulfate 2 mg 05/09/22 02:57 05/11/22 05:13 Morphine 2 Mg/1 Ml Inj IV 2 mg Q4H PRN Administration Pain, Moderate (4-6) Ondansetron HCl 4 mg 05/09/22 02:57 05/10/22 18:37 Ondansetron 4 Mg/2 Ml Inj IV 4 mg Q8H PRN Administration Nausea And Vomiting Senna 17.2 mg 05/10/22 22:00 05/10/22 22:30 Sennosides 8.6 Mg Tab PO 17.2 mg QHS ELIZA Administration Sodium Chloride 10 ml 05/09/22 10:00 05/10/22 22:30 Sodium Chloride 0.9% 10 Ml Flush Syringe IV 10 ml BID ELIZA Administration Sodium Chloride 10 ml 05/09/22 02:57 Sodium Chloride 0.9% 10 Ml Flush Syringe IV PRN PRN LINE FLUSH Tamsulosin HCl 0.4 mg 05/10/22 10:00 05/10/22 09:04 Tamsulosin 0.4 Mg Cap PO 0.4 mg QDAY ELIZA Administration Nutrition/Malnutrition Assess - Dietary Evaluation Nutrition/Malnutrition Findings: Nutrition Notes Start: 05/09/22 08:29 Freq: Status: Active Protocol: Document 05/09/22 08:29 CHANI (Rec: 05/09/22 08:45 CHANI [id number]) Nutrition Notes Need for Assessment generated from: MD Order,Education Initial or Follow up Brief Note Current Diagnosis Acute Kidney Injury,Diabetes, Stroke Other Pertinent Diagnosis Hyperglycemia, DKA, Hyperkalemia. Current Diet NPO (since 05/09 03:01). Height 5 ft 10 in Weight 66 kg [place] Body Weight (kg) 75.45 BMI 20.8 Intake Prior to Admission Good Weight change and time frame Pt denies having loss body weight NEON GLASS BLOWER. Weight Status Appropriate Subjective/Other Information RD consult for nutrition education assessment. Pt currently on NPO. Pt is on Room Air, O2 saturation @ 100%, according to Physical Assessment History notes. Pt has missing teeth, according to Physical Assessment History notes. Pt presents L-BKA, according to Physical Assessment History notes. Pt complains of N/V/Abdominal Pain, according to History & Physical notes. Pt still in critical condition , not a candidate for Nutrition Education at the time, will assess feasibility on F/U. Percent of energy/protein needs met: Pt currently on NPO. Nutrition Intervention Follow-Up By: 05/11/22 Additional Comments Nutrition education will be provided at F/U, if feasible. When pertinent, start monitoring food tolerance, %PO intake of meals, and BM.
[2022-05-10] MEDS: K-PHOS NEUTRAL 250 MG TAB PO SCH ×3 (11:14→18:10)
--- NOTE | 2022-05-10 12:27 | XRay Report ---
ABDOMEN 1 VIEW 05/10/2022 10:31 AM INDICATION / CLINICAL INFORMATION: Nausea/Abdominal distention. COMPARISON: None available. FINDINGS: TUBES / LINES: None. BOWEL GAS PATTERN: No significant abnormality. FREE AIR / EXTRALUMINAL GAS: None. ADDITIONAL FINDINGS: No significant additional findings. IMPRESSION: 1. No acute findings. Signer Name: Bernardo Akhtar MD Signed: 05/10/2022 12:23 PM Workstation Name: [id number]
[2022-05-10] MEDS ORDERED: MAGNESIUM HYDROXIDE (MOM) ORAL LIQD UDC PO SCH (13:00)
--- NOTE | 2022-05-10 14:47 | Progress Note ---
Assessment and Plan Diabetic ketoacidosis Hyperkalemia Hypertension H/O CVA - flomax added - bowel regimen - continue accuchecks with glycemic control per SSI for target blood glucose < 180 mg/dL - prn supplemental oxygen to keep O2 sats > 90% - prn bronchodilators (KEVIN) with pulm hygiene per RT - continue to avoid nephrotoxins, renally dose all medications - mobility protocols to prevent pressure ulcers - PT/OT as tolerated - Wound care per RN/WCT - tobacco abstinence strongly counseled at the bedside - home oxygen evaluation at discharge - GI & VTE prophylaxis - Flu & pneumovax per protocol - Pulmonary out patient follow up for PFTs and optimization of respiratory status - continue other care per attending / other consultants - prn analgesia per pain score ... re-evaluate in am & prn ... to transfer to medical floor Subjective Date of service: 05/10/22 Principal diagnosis: Diabetic ketoacidosis; Hyperkalemia; Hypertension; H/O CVA Interval history: Patient is seen today for: Diabetic ketoacidosis; Hyperkalemia; Hypertension; H/O CVA Seen and examined at bedside; 24hour events reviewed; nursing and respiratory care staff consulted; no adverse overnight events reported to me; resting peacefully in bed; transitioned off IV insulin overnight; germain catheter placed for urinary retention; KUB consistent with constipation; afebrile Objective Vital Signs - 12hr 05/10/22 05/10/22 05/10/22 03:00 03:30 04:00 Temperature 98.4 F Pulse Rate 103 H 94 H 99 H Pulse Rate [ 99 H From Monitor] Respiratory 25 H 36 H 14 Rate Blood Pressure 97/39 119/54 96/45 O2 Sat by Pulse 99 99 Oximetry 05/10/22 05/10/22 05/10/22 04:30 05:00 05:30 Temperature Pulse Rate 94 H 95 H 96 H Pulse Rate [ From Monitor] Respiratory 24 27 H 22 Rate Blood Pressure 112/49 119/53 124/69 O2 Sat by Pulse 100 96 Oximetry 05/10/22 05/10/22 05/10/22 06:00 06:30 07:00 Temperature Pulse Rate 95 H 96 H 93 H Pulse Rate [ From Monitor] Respiratory 23 23 22 Rate Blood Pressure 110/54 119/64 109/53 O2 Sat by Pulse 99 99 98 Oximetry 05/10/22 05/10/22 05/10/22 07:16 07:30 08:00 Temperature 98.9 F Pulse Rate 90 102 H Pulse Rate [ 99 H From Monitor] Respiratory 34 H 17 Rate Blood Pressure 122/67 122/67 O2 Sat by Pulse 99 81 L Oximetry 05/10/22 05/10/22 05/10/22 08:30 09:00 09:30 Temperature Pulse Rate 95 H 83 91 H Pulse Rate [ From Monitor] Respiratory 34 H 25 H 35 H Rate Blood Pressure 129/67 123/62 134/62 O2 Sat by Pulse 99 99 100 Oximetry 05/10/22 05/10/22 05/10/22 10:00 10:30 11:00 Temperature Pulse Rate 92 H 96 H 94 H Pulse Rate [ From Monitor] Respiratory 34 H 19 24 Rate Blood Pressure 140/67 136/66 137/62 O2 Sat by Pulse 98 97 99 Oximetry 05/10/22 05/10/22 05/10/22 11:30 12:00 12:10 Temperature Pulse Rate 95 H 100 H Pulse Rate [ 99 H From Monitor] Respiratory 22 14 24 Rate Blood Pressure 144/75 O2 Sat by Pulse 97 99 99 Oximetry 05/10/22 05/10/22 05/10/22 12:17 12:30 13:00 Temperature 98.3 F Pulse Rate 96 H 96 H Pulse Rate [ From Monitor] Respiratory 22 34 H Rate Blood Pressure 119/56 131/59 O2 Sat by Pulse 99 99 Oximetry 05/10/22 05/10/22 13:30 14:00 Temperature Pulse Rate 98 H 101 H Pulse Rate [ From Monitor] Respiratory 20 20 Rate Blood Pressure 116/50 100/49 O2 Sat by Pulse 100 98 Oximetry Constitutional: no acute distress Eyes: non-icteric ENT: oropharynx moist Neck: supple, no lymphadenopathy, no JVD Effort: normal Ascultation: Bilateral: clear Percussion: Bilateral: not dull Cardiovascular: regular rate and rhythm Gastrointestinal: normoactive bowel sounds, soft, non-tender, non-distended Integumentary: normal Extremities: no cyanosis, no edema, pulses normal, no ischemia or petechiae Neurologic: non-focal exam (grossly), pupils equal and round, CN II-XII normal, motor strength normal and Psychiatric: mood appropriate, affect normal CBC and BMP: 05/11/22 05:30 05/11/22 05:30 ABG, PT/INR, D-dimer: ABG ABG pH 7.138 pH Units (7.350-7.450) L* 05/09/22 02:20 ABG pCO2 13.7 mm Hg 05/09/22 02:20 ABG pO2 116.6 mm Hg (80.0-90.0) H 05/09/22 02:20 ABG O2 Saturation 97.5 % (95.0-99.0) 05/09/22 02:20 Abnormal lab findings: Abnormal Labs 05/08/22 05/08/22 05/09/22 23:38 23:38 01:12 WBC 12.4 H MCHC 31 L RDW 16.1 H Seg Neuts % (Manual) 86.0 H Lymphocytes % (Manual) 9.0 L Seg Neutrophils # Man 10.7 H Lymphocytes # (Manual) 1.1 L ABG pH ABG pO2 ABG HCO3 ABG Base Excess ABG Hemoglobin Sodium 130 L Potassium 6.9 H* Chloride 85.3 L Carbon Dioxide 6 L* BUN 47 H Creatinine 1.9 H Glucose 804 H* POC Glucose Calcium Phosphorus 9.60 H Magnesium 2.90 H AST Alkaline Phosphatase 142 H C-Reactive Protein Albumin Urine Creatinine Urine Total Protein 05/09/22 05/09/22 05/09/22 01:12 02:20 04:22 WBC MCHC RDW Seg Neuts % (Manual) Lymphocytes % (Manual) Seg Neutrophils # Man Lymphocytes # (Manual) ABG pH 7.138 L* ABG pO2 116.6 H ABG HCO3 4.5 L ABG Base Excess -22.3 L ABG Hemoglobin 12.0 L Sodium 131 L Potassium 6.6 H* Chloride 88.7 L Carbon Dioxide 5 L* BUN 48 H Creatinine 1.8 H Glucose 811 H* POC Glucose 556 H Calcium Phosphorus Magnesium AST Alkaline Phosphatase C-Reactive Protein Albumin Urine Creatinine Urine Total Protein 05/09/22 05/09/22 05/09/22 04:40 05:28 06:30 WBC MCHC RDW Seg Neuts % (Manual) Lymphocytes % (Manual) Seg Neutrophils # Man Lymphocytes # (Manual) ABG pH ABG pO2 ABG HCO3 ABG Base Excess ABG Hemoglobin Sodium Potassium 5.8 H Chloride 97.2 L Carbon Dioxide 6 L* BUN 44 H Creatinine 1.8 H Glucose 629 H* POC Glucose 591 H 487 H Calcium Phosphorus 8.00 H Magnesium 2.80 H AST Alkaline Phosphatase C-Reactive Protein Albumin Urine Creatinine Urine Total Protein 05/09/22 05/09/22 05/09/22 07:00 07:36 08:56 WBC MCHC RDW Seg Neuts % (Manual) Lymphocytes % (Manual) Seg Neutrophils # Man Lymphocytes # (Manual) ABG pH ABG pO2 ABG HCO3 ABG Base Excess ABG Hemoglobin Sodium Potassium 6.3 H* Chloride Carbon Dioxide 10 L BUN 45 H Creatinine 1.8 H Glucose 534 H* POC Glucose 409 H 367 H Calcium Phosphorus Magnesium AST Alkaline Phosphatase C-Reactive Protein Albumin Urine Creatinine Urine Total Protein 05/09/22 05/09/22 05/09/22 09:27 10:09 11:05 WBC MCHC RDW Seg Neuts % (Manual) Lymphocytes % (Manual) Seg Neutrophils # Man Lymphocytes # (Manual) ABG pH ABG pO2 ABG HCO3 ABG Base Excess ABG Hemoglobin Sodium Potassium 5.2 H Chloride Carbon Dioxide 14 L BUN 41 H Creatinine 1.8 H Glucose 344 H POC Glucose 280 H 248 H Calcium Phosphorus Magnesium 2.60 H AST Alkaline Phosphatase C-Reactive Protein Albumin Urine Creatinine Urine Total Protein 05/09/22 05/09/22 05/09/22 12:26 14:06 14:32 WBC MCHC RDW Seg Neuts % (Manual) Lymphocytes % (Manual) Seg Neutrophils # Man Lymphocytes # (Manual) ABG pH ABG pO2 ABG HCO3 ABG Base Excess ABG Hemoglobin Sodium 146 H Potassium Chloride 111.6 H Carbon Dioxide 19 L BUN 38 H Creatinine 1.5 H Glucose 135 H POC Glucose 178 H 123 H Calcium 8.1 L Phosphorus Magnesium AST Alkaline Phosphatase C-Reactive Protein Albumin Urine Creatinine Urine Total Protein 05/09/22 05/09/22 05/09/22 16:25 17:32 17:35 WBC MCHC RDW Seg Neuts % (Manual) Lymphocytes % (Manual) Seg Neutrophils # Man Lymphocytes # (Manual) ABG pH ABG pO2 ABG HCO3 ABG Base Excess ABG Hemoglobin Sodium Potassium Chloride 110.2 H Carbon Dioxide 18 L BUN 36 H Creatinine 1.4 H Glucose 133 H POC Glucose 117 H 116 H Calcium 8.0 L Phosphorus 2.10 L D Magnesium AST Alkaline Phosphatase C-Reactive Protein 1.60 H Albumin Urine Creatinine Urine Total Protein 05/09/22 05/09/22 05/09/22 18:45 18:50 19:53 WBC MCHC RDW Seg Neuts % (Manual) Lymphocytes % (Manual) Seg Neutrophils # Man Lymphocytes # (Manual) ABG pH ABG pO2 ABG HCO3 ABG Base Excess ABG Hemoglobin Sodium Potassium Chloride Carbon Dioxide BUN Creatinine Glucose POC Glucose 109 H 108 H Calcium Phosphorus Magnesium AST Alkaline Phosphatase C-Reactive Protein Albumin Urine Creatinine 198.4 H Urine Total Protein 100 H 05/09/22 05/10/22 05/10/22 21:52 01:53 05:07 WBC 16.0 H MCHC RDW Seg Neuts % (Manual) Lymphocytes % (Manual) Seg Neutrophils # Man Lymphocytes # (Manual) ABG pH ABG pO2 ABG HCO3 ABG Base Excess ABG Hemoglobin Sodium Potassium Chloride Carbon Dioxide BUN Creatinine Glucose POC Glucose 119 H 145 H Calcium Phosphorus Magnesium AST Alkaline Phosphatase C-Reactive Protein Albumin Urine Creatinine Urine Total Protein 05/10/22 05/10/22 05/10/22 05:07 05:18 07:51 WBC MCHC RDW Seg Neuts % (Manual) Lymphocytes % (Manual) Seg Neutrophils # Man Lymphocytes # (Manual) ABG pH ABG pO2 ABG HCO3 ABG Base Excess ABG Hemoglobin Sodium Potassium Chloride 107.5 H Carbon Dioxide 17 L BUN 25 H Creatinine Glucose 145 H POC Glucose 144 H 146 H Calcium Phosphorus 2.20 L Magnesium AST 141 H Alkaline Phosphatase C-Reactive Protein Albumin 3.6 L Urine Creatinine Urine Total Protein Allied health notes reviewed: nursing
[2022-05-10] MEDS: AZITHROMYCIN/NS 500 MG/250 ML 500 MG/250 ML BAG IV SCH (18:09)
[2022-05-10] MEDS ORDERED: SENNOSIDES 8.6 MG TAB PO SCH (22:00)
[2022-05-10] MEDS: DOCUSATE SODIUM 100 MG CAP PO SCH (22:30)
[2022-05-10 22:32] VITALS: BP 136/71
[2022-05-10] MEDS: SODIUM CHLORIDE 0.9% 1000 ML 1,000 ML IV SCH (22:50)
[2022-05-10] MEDS: INSULIN GLARGINE 100 UNITS/ML SUB-Q SCH (23:41)
[2022-05-11] MEDS: MORPHINE 2 MG/1 ML INJ IV PRN ×2 (05:13→09:11)
[2022-05-11] MEDS: HEPARIN 5,000 UNIT/1 ML VIAL SUB-Q SCH (05:18)
[2022-05-11 06:15] LABS: Hematocrit 31.5 % (35.5-45.6); Hemoglobin 10.7 gm/dl (11.8-15.2); Mean Corpuscular HGB Conc 34 % (32-34); Mean Corpuscular Volume 84 fl (84-94); Platelet Count 260 K/mm3 (140-440); Red Blood Count 3.73 M/mm3 (3.65-5.03); Red Cell Distribution Width 15.1 % (13.2-15.2)
[2022-05-11 06:36] LABS: BUN/Creatinine Ratio 17; Blood Urea Nitrogen 17 mg/dL (9-20); Calcium 8.2 mg/dL (8.4-10.2); Hemolysis Index 0
[2022-05-11] MEDS: SODIUM CHLORIDE 0.9% 1000 ML 1,000 ML IV SCH (07:25)
[2022-05-11] MEDS: INSULIN LISPRO 100 UNIT/ML SUB-Q SCH ×2 (08:22→12:25)
--- NOTE | 2022-05-11 08:32 | Progress Note ---
Assessment and Plan Diabetic ketoacidosis Hyperkalemia Hypertension H/O CVA - discharge planning ok - continue care as below for now; - continue accuchecks with glycemic control per SSI for target blood glucose < 180 mg/dL - prn supplemental oxygen to keep O2 sats > 90% - prn bronchodilators (KEVIN) with pulm hygiene per RT - continue to avoid nephrotoxins, renally dose all medications - mobility protocols to prevent pressure ulcers - PT/OT as tolerated - Wound care per RN/WCT - tobacco abstinence strongly counseled at the bedside - home oxygen evaluation at discharge - GI & VTE prophylaxis - Flu & pneumovax per protocol - Pulmonary out patient follow up for PFTs and optimization of respiratory status - continue other care per attending / other consultants - prn analgesia per pain score ... re-evaluate in am & prn Subjective Date of service: 05/11/22 Principal diagnosis: Diabetic ketoacidosis; Hyperkalemia; Hypertension; H/O CVA Interval history: Patient is seen today for: Diabetic ketoacidosis; Hyperkalemia; Hypertension; H/O CVA Seen and examined at bedside; 24hour events reviewed; nursing and respiratory care staff consulted; no adverse overnight events reported to me; resting peacefully in bed; doing much better; had a good BM; ready to go home Objective Vital Signs - 12hr 05/10/22 22:28 Pulse Rate 91 H Respiratory 20 Rate Blood Pressure 136/71 O2 Sat by Pulse 99 Oximetry Constitutional: no acute distress Eyes: non-icteric ENT: oropharynx moist Neck: supple, no lymphadenopathy, no JVD Effort: normal Ascultation: Bilateral: clear Percussion: Bilateral: not dull Cardiovascular: regular rate and rhythm Gastrointestinal: normoactive bowel sounds, soft, non-tender, non-distended Integumentary: normal Extremities: no cyanosis, no edema, pulses normal, no ischemia or petechiae, other (left BKA) Neurologic: non-focal exam (grossly), pupils equal and round, CN II-XII normal, motor strength normal and Psychiatric: mood appropriate, affect normal CBC and BMP: 05/11/22 05:30 05/11/22 05:30 ABG, PT/INR, D-dimer: ABG ABG pH 7.138 pH Units (7.350-7.450) L* 05/09/22 02:20 ABG pCO2 13.7 mm Hg 05/09/22 02:20 ABG pO2 116.6 mm Hg (80.0-90.0) H 05/09/22 02:20 ABG O2 Saturation 97.5 % (95.0-99.0) 05/09/22 02:20 Abnormal lab findings: Abnormal Labs 05/08/22 05/08/22 05/09/22 23:38 23:38 01:12 WBC 12.4 H Hgb Hct MCHC 31 L RDW 16.1 H Seg Neuts % (Manual) 86.0 H Lymphocytes % (Manual) 9.0 L Seg Neutrophils # Man 10.7 H Lymphocytes # (Manual) 1.1 L ABG pH ABG pO2 ABG HCO3 ABG Base Excess ABG Hemoglobin Sodium 130 L Potassium 6.9 H* Chloride 85.3 L Carbon Dioxide 6 L* BUN 47 H Creatinine 1.9 H Glucose 804 H* POC Glucose Calcium Phosphorus 9.60 H Magnesium 2.90 H AST Alkaline Phosphatase 142 H C-Reactive Protein Albumin Urine Creatinine Urine Total Protein 05/09/22 05/09/22 05/09/22 01:12 02:20 04:22 WBC Hgb Hct MCHC RDW Seg Neuts % (Manual) Lymphocytes % (Manual) Seg Neutrophils # Man Lymphocytes # (Manual) ABG pH 7.138 L* ABG pO2 116.6 H ABG HCO3 4.5 L ABG Base Excess -22.3 L ABG Hemoglobin 12.0 L Sodium 131 L Potassium 6.6 H* Chloride 88.7 L Carbon Dioxide 5 L* BUN 48 H Creatinine 1.8 H Glucose 811 H* POC Glucose 556 H Calcium Phosphorus Magnesium AST Alkaline Phosphatase C-Reactive Protein Albumin Urine Creatinine Urine Total Protein 05/09/22 05/09/22 05/09/22 04:40 05:28 06:30 WBC Hgb Hct MCHC RDW Seg Neuts % (Manual) Lymphocytes % (Manual) Seg Neutrophils # Man Lymphocytes # (Manual) ABG pH ABG pO2 ABG HCO3 ABG Base Excess ABG Hemoglobin Sodium Potassium 5.8 H Chloride 97.2 L Carbon Dioxide 6 L* BUN 44 H Creatinine 1.8 H Glucose 629 H* POC Glucose 591 H 487 H Calcium Phosphorus 8.00 H Magnesium 2.80 H AST Alkaline Phosphatase C-Reactive Protein Albumin Urine Creatinine Urine Total Protein 05/09/22 05/09/22 05/09/22 07:00 07:36 08:56 WBC Hgb Hct MCHC RDW Seg Neuts % (Manual) Lymphocytes % (Manual) Seg Neutrophils # Man Lymphocytes # (Manual) ABG pH ABG pO2 ABG HCO3 ABG Base Excess ABG Hemoglobin Sodium Potassium 6.3 H* Chloride Carbon Dioxide 10 L BUN 45 H Creatinine 1.8 H Glucose 534 H* POC Glucose 409 H 367 H Calcium Phosphorus Magnesium AST Alkaline Phosphatase C-Reactive Protein Albumin Urine Creatinine Urine Total Protein 05/09/22 05/09/22 05/09/22 09:27 10:09 11:05 WBC Hgb Hct MCHC RDW Seg Neuts % (Manual) Lymphocytes % (Manual) Seg Neutrophils # Man Lymphocytes # (Manual) ABG pH ABG pO2 ABG HCO3 ABG Base Excess ABG Hemoglobin Sodium Potassium 5.2 H Chloride Carbon Dioxide 14 L BUN 41 H Creatinine 1.8 H Glucose 344 H POC Glucose 280 H 248 H Calcium Phosphorus Magnesium 2.60 H AST Alkaline Phosphatase C-Reactive Protein Albumin Urine Creatinine Urine Total Protein 05/09/22 05/09/22 05/09/22 12:26 14:06 14:32 WBC Hgb Hct MCHC RDW Seg Neuts % (Manual) Lymphocytes % (Manual) Seg Neutrophils # Man Lymphocytes # (Manual) ABG pH ABG pO2 ABG HCO3 ABG Base Excess ABG Hemoglobin Sodium 146 H Potassium Chloride 111.6 H Carbon Dioxide 19 L BUN 38 H Creatinine 1.5 H Glucose 135 H POC Glucose 178 H 123 H Calcium 8.1 L Phosphorus Magnesium AST Alkaline Phosphatase C-Reactive Protein Albumin Urine Creatinine Urine Total Protein 05/09/22 05/09/22 05/09/22 16:25 17:32 17:35 WBC Hgb Hct MCHC RDW Seg Neuts % (Manual) Lymphocytes % (Manual) Seg Neutrophils # Man Lymphocytes # (Manual) ABG pH ABG pO2 ABG HCO3 ABG Base Excess ABG Hemoglobin Sodium Potassium Chloride 110.2 H Carbon Dioxide 18 L BUN 36 H Creatinine 1.4 H Glucose 133 H POC Glucose 117 H 116 H Calcium 8.0 L Phosphorus 2.10 L D Magnesium AST Alkaline Phosphatase C-Reactive Protein 1.60 H Albumin Urine Creatinine Urine Total Protein 05/09/22 05/09/22 05/09/22 18:45 18:50 19:53 WBC Hgb Hct MCHC RDW Seg Neuts % (Manual) Lymphocytes % (Manual) Seg Neutrophils # Man Lymphocytes # (Manual) ABG pH ABG pO2 ABG HCO3 ABG Base Excess ABG Hemoglobin Sodium Potassium Chloride Carbon Dioxide BUN Creatinine Glucose POC Glucose 109 H 108 H Calcium Phosphorus Magnesium AST Alkaline Phosphatase C-Reactive Protein Albumin Urine Creatinine 198.4 H Urine Total Protein 100 H 05/09/22 05/10/22 05/10/22 21:52 01:53 05:07 WBC 16.0 H Hgb Hct MCHC RDW Seg Neuts % (Manual) Lymphocytes % (Manual) Seg Neutrophils # Man Lymphocytes # (Manual) ABG pH ABG pO2 ABG HCO3 ABG Base Excess ABG Hemoglobin Sodium Potassium Chloride Carbon Dioxide BUN Creatinine Glucose POC Glucose 119 H 145 H Calcium Phosphorus Magnesium AST Alkaline Phosphatase C-Reactive Protein Albumin Urine Creatinine Urine Total Protein 05/10/22 05/10/22 05/10/22 05:07 05:18 07:51 WBC Hgb Hct MCHC RDW Seg Neuts % (Manual) Lymphocytes % (Manual) Seg Neutrophils # Man Lymphocytes # (Manual) ABG pH ABG pO2 ABG HCO3 ABG Base Excess ABG Hemoglobin Sodium Potassium Chloride 107.5 H Carbon Dioxide 17 L BUN 25 H Creatinine Glucose 145 H POC Glucose 144 H 146 H Calcium Phosphorus 2.20 L Magnesium AST 141 H Alkaline Phosphatase C-Reactive Protein Albumin 3.6 L Urine Creatinine Urine Total Protein 05/10/22 05/10/22 05/10/22 11:46 17:20 21:21 WBC Hgb Hct MCHC RDW Seg Neuts % (Manual) Lymphocytes % (Manual) Seg Neutrophils # Man Lymphocytes # (Manual) ABG pH ABG pO2 ABG HCO3 ABG Base Excess ABG Hemoglobin Sodium Potassium Chloride Carbon Dioxide BUN Creatinine Glucose POC Glucose 197 H 214 H 257 H Calcium Phosphorus Magnesium AST Alkaline Phosphatase C-Reactive Protein Albumin Urine Creatinine Urine Total Protein 05/11/22 05/11/22 05:30 05:30 WBC 12.8 H Hgb 10.7 L Hct 31.5 L MCHC RDW Seg Neuts % (Manual) Lymphocytes % (Manual) Seg Neutrophils # Man Lymphocytes # (Manual) ABG pH ABG pO2 ABG HCO3 ABG Base Excess ABG Hemoglobin Sodium Potassium Chloride Carbon Dioxide 20 L BUN Creatinine Glucose 241 H POC Glucose Calcium 8.2 L Phosphorus 2.00 L Magnesium AST Alkaline Phosphatase C-Reactive Protein Albumin Urine Creatinine Urine Total Protein Allied health notes reviewed: nursing
[2022-05-11] MEDS: DOCUSATE SODIUM 100 MG CAP PO SCH (09:11)
[2022-05-11] MEDS: FAMOTIDINE 20 MG TAB PO SCH (09:11)
[2022-05-11] MEDS: GABAPENTIN 100 MG CAP PO SCH (09:11)
[2022-05-11] MEDS: TAMSULOSIN 0.4 MG CAP PO SCH (09:11)
--- NOTE | 2022-05-11 10:00 | Discharge Summary ---
Providers - Providers Date of Admission: 05/09/22 02:58 Attending physician: ROSA KOHLER MD 05/09/22 02:58 Consult to Dietitian/Nutrition [CONS] Routine Physician Instructions: Reason For Exam: Reason for Consult: Diet education Consult to Physician [CONS] Routine Comment: Consulting Provider: JAYLYN RODRIGUEZ Physician Instructions: Reason For Exam: DKA - ON INSULIN DRIP 05/10/22 10:34 Occupational Therapy Evaluate and Treat [CONS] Routine Comment: Reason For Exam: Debility Physical Therapy Evaluation and Treat [CONS] Routine Comment: Reason For Exam: Debility Primary care physician: REVA REYNA Hospitalization Reason for admission: dka Condition: Stable Hospital course: This is a 62-year-old male with known past medical history of HTN, arthritis, and IDDM complicated by diabetic neuropathy s/p LBKA, admitted for DKA Hospital Course to Date: 05/09: Remains in DKA with hyperkalemia and metabolic acidosis this am. Additional IVF administered, continue insulin gtt and IVF resuscitation per DKA protocol. Renal function is unchanged, patient denied any previous renal issues. Probably vasomotor nephropathy secondary to DKA. Serial labs ordered. Continue to monitor BG, anion gap, and electrolytes. 05/10: Transitioned to subQ insulin overnight. Still c/o abdominal cramping with nausea but no vomiting. Abdominal distention also noted- KUB imaging reviewed, suggesting constipation. Patient reported he has not had a BM in probably over a week. BR added. Patient is afebrile this am with worsen leukocytosis, VSS. COVID PCR is negative, CRP, and TSH noted. Procal still pending, continue current empiric IV abx for now. Germain catheter was also inserted overnight due to urinary retention, renal function in normal range this am. Flomax added, D/C germain per protocol in the am. PT/OT consulted for discharge plan. Patient is stable for transfer to the floor. 05/11: Patient seen and examined resting comfortably. Tolerating diet. Does states that he hates his diet that we have. He wants to go home. He is voiding appropriately. He still complains of intermittent abdominal pain but states that he has those chronically but no further nausea. Renal function has improved. Diabetic Education provided. Assessment and Plan #Diabetic Ketoacidosis(DKA) #Insulin Dependent Diabetes Mellitus(IDDM) #Anion Gap Metabolic Acidosis - On DKA protocol - BG and anion gap still elevated this am - Additional IVF bolus ordered - Continue insulin gtt and IVF resuscitation per DKA protocol - Hgb A1c pending - Monitor and replace electrolytes as needed - Monitor anion gap, serial Labs ordered #Acute Kidney Injury(LORA) probably Vasomotor Nephropathy #Urinary Retention #Hyperkalemia-resolved #Metabolic Acidosis-resolved - secondary to Above - Baseline renal function is unknown, patient reported no prior history of renal disease - Presented with K of 6.9, Scr. 1.9. FeNa suggested Prerenal - s/p DKA protocol - Renal function normalized this am - Urinary retention overnight, germain inserted - Flomax added, D/C germain per protocol in the am - Strict intake and output - Avoid nephrotoxic medications; Renally dose medications - Monitor and replace electrolytes as needed #SIRS #Leukocytosis # Gastroparesis #Bilateral Lungs infiltrate - With leukocytosis, low grade temp 100.3, with low BP - UA is unremarkable - Chest x-ray shows probable bilateral edema/atelectasis without other acute findings - COVID PCR negative - Patient is stable on RA, SPO2 above 95% - COVID PCR negative - Empiric IV Abx initiated for possible CAP - Procal pending - F/U on cultures - Daily CBC monitor #Hypertension - BP soft this am, SR on the monitor - Hold antihypertensive therapy today, resume home meds tomorrow - Continue blood pressure monitor per protocol - Maintain SBP less than 160 #Diabetic Neuropathy s/p LBKA - Chronic, continue support measures - Home meds resumed #Advance Care Planning - Disease education data, care plan, diagnoses, and prognosis were discussed with patient at the bedside. Patient is a FULL code. Patient acknowledged understanding and agreed with current care plan. Disposition: HOME / SELF CARE / HOMELESS Final Discharge Diagnosis (Prints w/discharge instructions): #Diabetic Ketoacidosis(DKA). #Insulin Dependent Diabetes Mellitus(IDDM). #Anion Gap Metabolic Acidosis. # Gastroparesis. #Acute Kidney Injury(LORA) probably Vasomotor Nephropathy. #Urinary Retention. #Hyperkalemia-resolved. #Metabolic Acidosis-resolved Time spent for discharge: 35 mins Core Measure Documentation - Palliative Care Palliative Care/ Comfort Measures: Not Applicable - Core Measures Any of the following diagnoses?: none Exam - Physical Exam Narrative exam: - Physical exam Narrative exam: General appearance: Present: no acute distress, well-nourished, obese - EENT Eyes: Present: PERRL, EOM intact ENT: hearing intact - Neck Neck: Present: normal ROM - Respiratory Respiratory effort: normal Respiratory: bilateral: diminished - Cardiovascular Rhythm: regular Heart Sounds: Present: S1 & S2 - Extremities Extremities: no ischemia, pulses intact, pulses symmetrical, abnormal (Left BKA) Peripheral Pulses: within normal limits - Abdominal General gastrointestinal: soft, non tended, non distended, normal bowel sounds - Integumentary Integumentary: Present: warm, dry - Psychiatric Psychiatric: appropriate mood/affect, cooperative - Neurologic Neurologic: CNII-XII intact, moves all extremities - Allied Health Allied health notes reviewed: nursing - Constitutional Vitals: Temp Pulse Resp BP Pulse Ox 99.0 F 91 H 20 136/71 99 05/10/22 17:23 05/10/22 22:28 05/10/22 22:28 05/10/22 22:28 05/10/22 22:28 Plan Activity: advance as tolerated, fall precautions Diet: diabetic Special Instructions: record daily weights, record daily BP diary, record blood sugar diary Follow up with: REVA REYNA MD [Primary Care Provider] - 7 Days ISAURO SNELL MD [Staff Physician] - 7 Days Prescriptions: Tamsulosin [Flomax] 0.4 mg PO QDAY #30 capsule Famotidine [Pepcid] 20 mg PO QDAY #30 tablet Metoclopramide [Reglan] 10 mg PO ACHS #30 tablet
[2022-05-11] MEDS ORDERED: AZITHROMYCIN 250 MG TAB PO SCH (11:00)
[2022-05-11] MEDS ORDERED: cefTRIAXone/NS 2 GM/100 ML 2 GM/100 ML BAG IV SCH (11:00)
--- NOTE | 2022-05-11 16:46 | Electrocardiograph Report ---
[facility] Test Date: 2022-05-09 Test Time: 00:59:30 Pat Name: ARASELI HENRIQUEZ Department: Room: A392 1 Gender: M City Attorney: YUSUF : 1960 Requested By: ROSA KOHLER Order Number: [id number] Reading MD: Khoi Barnes Measurements Intervals [place] Rate: 85 P: 0 OR: 145 QRS: 260 QRSD: 104 T: -16 QT: 423 QTc: 499 Interpretive Statements Very poor quality ECG Sinus rhythm with variable OR interval, consider Wenckebach AV block Left axis deviation ST depression, consider lateral ischemia No previous ECG available for comparison Electronically Signed On 05-11-2022 16:46:28 EDT by Khoi Barnes
--- NOTE | 2022-05-11 16:52 | Electrocardiograph Report ---
[facility] Test Date: 2022-05-09 Test Time: 16:37:17 Pat Name: ARASELI HENRIQUEZ Department: Room: A392 1 Gender: M [employer]: JAMES : 1960 Requested By: PETRA PEREZ Order Number: [id number] Reading MD: Khoi Barnes Measurements Intervals [place] Rate: 91 P: 31 MS: 265 QRS: -67 QRSD: 80 T: QT: 348 QTc: 429 Interpretive Statements Sinus rhythm Prolonged MS interval Left axis deviation Low voltage QRS Nonspecific ST segment abnormality No previous ECG available for comparison Electronically Signed On 05-11-2022 16:52:27 EDT by Khoi Barnes
== END 2022-05-11 12:35 | disposition home or self-care (01) | DRG 637 ==
LOC: ED 23:04 → CC1 05-09 02:58 → 3A 05-10 16:37
PROVIDERS: ADMIT Internal Medicine Geriatric Medicine; ATTEND Internal Medicine
PROC: 4A033R1 Measurement of Arterial Saturation, Peripheral, Percutaneous Approach (ICD-10-PCS; principal; 2022-05-09)
DX: E11.10 Type 2 diabetes mellitus with ketoacidosis without coma (principal); N17.0 Acute kidney failure with tubular necrosis; R65.10 Systemic inflammatory response syndrome (SIRS) of non-infectious origin without acute organ dysfunction; Z20.822 Contact with and (suspected) exposure to COVID-19; E11.40 Type 2 diabetes mellitus with diabetic neuropathy, unspecified; I10 Essential (primary) hypertension; M19.90 Unspecified osteoarthritis, unspecified site; I95.9 Hypotension, unspecified; E87.5 Hyperkalemia; R33.9 Retention of urine, unspecified; E11.43 Type 2 diabetes mellitus with diabetic autonomic (poly)neuropathy; K31.84 Gastroparesis; Z86.73 Personal history of transient ischemic attack (TIA), and cerebral infarction without residual deficits; Z89.512 Acquired absence of left leg below knee
CPT/HCPCS: 36415; 71045; 74018; 80048; 80053; 81001; 82010; 82140; 82533; 82570; 82803; 82962; 83735; 84100; 84145; 84156; 84300; 84443; 85007; 85025; 85027; 86140; 87040; 93005; G0378; J3490; J7070; Q9967; J0456; J0610; J0696; J1644; J1815; J2270; J2405; J7030; J7120; U0003